=== PATIENT | male | born 2000 | race Caucasian/White ===

== ENCOUNTER 2019-09-11 20:01 | Emergency (ER) | payer MEDICAID, SELFPAY ==
[2019-09-11 20:12] VITALS: BP 141/85; PULSE 85; RESP 18; TEMP 36.8; O2SAT 100; BMI 27.1
--- NOTE | 2019-09-11 20:21 | XR_ITS ---
PROCEDURE: XR CHEST PORTABLE CLINICAL HISTORY: right low rib pain underneath ribs COMPARISON: CXR2 XR chest AP from 05/28/2018 XR CHEST 2V from 01/07/2019 CT ABDOMEN PELVIS W CON from 09/11/2019 FINDINGS: The cardiomediastinal silhouette and pulmonary vascularity are within normal limits. The lungs are clear without infiltrates, suspicious nodules, or pleural effusions. No acute bony abnormalities. IMPRESSION: No acute findings. Dictated by: Saleem Patiño MD 09/12/2019 05:30 Electronically signed by Saleem Patiño MD in [place] 09/12/2019 05:30
--- NOTE | 2019-09-11 20:23 | CT_ITS ---
PROCEDURE: CT ABDOMEN PELVIS W CON CLINICAL INDICATION: ruq abd pain Right upper quadrant pain, right lower quadrant pain COMPARISON: ABDPELW CT abdomen pelvis w con from 05/28/2018 TECHNIQUE: IV Contrast: 75ML OPTIRAY 350 Oral Contrast none Axial images obtained with sagittal and coronal reformats. All CT scans at the facility use one or more dose reduction, viz: automated exposure control, ma/kV adjustment per patient size (including targeted exams where dose is matched to indication, i.e. head), or iterative reconstruction technique. FINDINGS: LOWER THORAX: Increasing parenchymal opacity is present in the right middle lobe medially suggesting developing atelectasis or infiltrate versus scarring. ABDOMEN & PELVIS: The liver, spleen, adrenal glands, pancreas, and kidneys have an unremarkable appearance. There is a mild degree of motion artifact obscuring fine detail of the mid and upper abdomen especially of the intestines. No evidence of appendicitis, intestinal obstruction, free air, or diverticulitis. There is mild thickening of the urinary bladder.. No acute bony anomalies. Small lymph nodes are present in the inguinal regions. There postsurgical changes of the anterior abdominal wall on the left. There is a small umbilical hernia which contains fat IMPRESSION: 1. Thickening of the urinary bladder wall suggesting cystitis. The bladder is under distended which could contribute to this finding as well. 2. Increasing parenchymal opacification in the medial aspect of the right middle lobe which could be due to developing fibrosis versus atelectasis or infiltrate. Dictated by: Saleem Patiño MD 09/12/2019 06:11 Electronically signed by Saleem Patiño MD in [place] 09/12/2019 06:11
[2019-09-11 20:29] LABS: Basophils # 0.2 K/mm3 (0-0.2); Basophils % 2.2 % (0.1-2.0); Eosinophils # 0.4 K/mm3 (0.0-0.4); Hematocrit 50.4 % (42.0-52.0); Hemoglobin 16.8 g/dL (14.1-18.0); Lymphocytes # 3.3 K/mm3 (0.7-4.5); Lymphocytes % 33.2 % (10-50); Mean Corpuscular HGB Conc 33.4 g/dL (31.8-35.4); Mean Corpuscular Hemoglobin 29.4 pg (27.0-31.2); Mean Corpuscular Volume 87.9 fl (80-94); Monocytes # 0.6 K/mm3 (0.1-1.0); Monocytes % 6.2 % (1.7-9.3); Neutrophils # 5.4 K/mm3 (1.8-7.8); Neutrophils % 54.3 % (37.0-80.0); Platelet Count 313 K/mm3 (142-424); Red Blood Count 5.73 M/mm3 (4.60-6.20); Red Cell Distribution Width 13.1 % (11.5-17.5)
[2019-09-11 20:33] LABS: Chloride 101 mmol/L (98-107); Potassium 3.9 mmoL/L (3.5-5.1); Sodium 139 mmol/L (136-145)
[2019-09-11 20:35] LABS: Alanine Aminotransferase 46 U/L (12-78); Amylase 43 U/L (30-110); Aspartate Amino Transferase 34 U/L (17-59); Blood Urea Nitrogen 6 mg/dl (9-20); Creatinine Clearance Estimated 142 mL/min (50-200); Estimated Glomerular Filt Rate 94 ml/min (>60); GFR (African American) 114 ML/MIN (>60)
[2019-09-11 20:36] LABS: Albumin Level 4.9 g/dl (3.5-5.0); Albumin/Globulin Ratio 1.5 (1.1-1.8); Alkaline Phosphatase 64 U/L (38-126); Anion Gap 13.9 mEq/L (5-15); Bilirubin,Total 0.5 mg/dl (0.2-1.3); Calcium 9.9 mg/dl (8.4-10.2); Carbon Dioxide 28 mmol/L (22.0-30.0); Globulin 3.2 g/dL (1.3-3.2); Glucose 100 mg/dl (74-100); Lipase 42 U/L (23-300); Total Protein,Serum 8.1 g/dl (6.3-8.2)
[2019-09-11 20:49] LABS: Microscopic, Urine URINE MICROSCOPIC (MICROSCOPIC)
[2019-09-11 20:54] LABS: Appearance,Urine CLEAR (Clear); Bilirubin,Urine Negative (Negative); Blood, Urine Negative (Negative); Color,Urine YELLOW (Yellow); Glucose,Urine (UA) Negative (Negative); Ketones,Urine Negative (Negative); Leukocyte Esterase,Urine Negative (Negative); Nitrate,Urine Negative (Negative); Protein,Urine Negative (Negative); Urobilinogen,Urine 0.2 EU/dl (0.2)
--- NOTE | 2019-09-11 20:54 | PC.NURSE ---
back from rad
[2019-09-11 21:02] LABS: Bacteria,Urine Trace /lpf; WBC,Urine Occasional #/hpf (0-3)
--- NOTE | 2019-09-11 21:21 | HMH.EDNVD ---
ED Disposition Clinical Impression: Abdominal pain Qualifiers: Abdominal location: right upper quadrant Qualified Code(s): R10.11 - Right upper quadrant pain Disposition: Home, Self-Care Condition on Discharge: Good Instructions: DI for Acute Abdomen Additional Instructions: see pcp for follow up and more testing Referrals: Provider,Referral, [Primary Care Provider] - - Critical Care Critical Care Time: No Attestation: On 09/11/19, the high probability of a clinically significant, sudden or life threatening deterioration of the following system(s) required my full and direct attention, intervention and personal management. The time I documented below is in addition to time spent performing reported procedures but includes the following listed in this critical care notation. Medical Decision Making - Medical Records Medical records reviewed: Yes: I reviewed the patient's medical records. - Mehran Inquiry Pt receiving controlled substance: No Vital Signs: 09/11/19 20:12 Temperature 98.3 F Temperature Source Oral Pulse Rate [Right Brachial] 85 Respiratory Rate 18 Blood Pressure [Right Arm] 141/85 H Blood Pressure Mean [Right Arm] 103 Blood Pressure Source [Right Arm] Automatic Cuff Blood Pressure Position [Right Arm] Sitting 02 Sat by Pulse Oximetry 100 Oxygen Delivery Method Room Air - Lab Data Lab results reviewed: Yes: I reviewed the patient's lab results. Lab Results 09/11/19 20:20: WBC 10.0, RBC 5.73, Hgb 16.8, Hct 50.4, MCV 87.9, MCH 29.4, MCHC 33.4, RDW 13.1, Plt Count 313, MPV 8.0, Neut % (Auto) 54.3, Lymph % (Auto) 33.2, [place] % (Auto) 6.2, Eos % (Auto) 4.0, Baso % (Auto) 2.2 H, Neut # (Auto) 5.4, Lymph # (Auto) 3.3, [place] # (Auto) 0.6, Eos # (Auto) 0.4, Baso # (Auto) 0.2 09/11/19 20:20: Sodium 139, Potassium 3.9, Chloride 101, Carbon Dioxide 28, Anion Gap 13.9, BUN 6 L, Creatinine 1.00, Estimated Creat Clear 142, Estimated GFR 94, Est GFR ( Amer) 114, Glucose 100, Calcium 9.9, Total Bilirubin 0.5, AST 34, ALT 46, Alkaline Phosphatase 64, Total Protein 8.1, Albumin 4.9, Globulin 3.2, Albumin/Globulin Ratio 1.5, Amylase 43, Lipase 42 09/11/19 20:39: Urine Color Yellow, Urine Appearance Clear, Urine pH 6.0, Ur Specific [place] 1.010, Urine Protein Negative, Urine Glucose (UA) Negative, Urine Ketones Negative, Urine Blood Negative, Urine Nitrate Negative, Urine Bilirubin Negative, Urine Urobilinogen 0.2, Ur Leukocyte Esterase Negative, Urine WBC Occasional, Urine Bacteria Trace Result diagrams: 09/11/19 20:20 09/11/19 20:20 Orders (Tests/Meds): ED MEDICATIONS Generic Name Dose Route Start Last Admin Trade Name Freq PRN Reason Stop Dose Admin Sodium Chloride 1,000 mls @ 999 mls/hr 09/11/19 20:45 09/11/19 20:44 Sod Chlor 0.9% 1000ml Bag IV 09/11/19 21:45 999 mls/hr .Q1H1M MARKIE Administration Discontinued Medications Generic Name Dose Route Start Last Admin Trade Name Freq PRN Reason Stop Dose Admin Ioversol 75 ml 09/11/19 20:53 09/11/19 20:54 Rad-Optiray 350 100ml Vial IV 09/11/19 20:54 75 ml ONCE ONE Administration Protocol Sodium Chloride 10 ml 09/11/19 20:53 09/11/19 20:54 Rad-Saline Flush 10ml Syringe IV 09/11/19 20:54 10 ml ONCE ONE Administration ORDERS Category Date Time Status CT abdomen pelvis w con Stat Cat Scan 09/11/19 20:23 Taken Chest XR -- portable [XR chest portable] Stat Exams 09/11/19 20:21 Taken - Radiology Data #1 Image(s): Chest Image Reviewed: Yes I reviewed the patient's radiology image Preliminary Findings: Normal/NAD - CT Data CT Scan: Abdomen, Pelvis Time Received: 21:[address] Reviewed: Yes: I have viewed the radiologist's interpretation Preliminary Findings: Normal/NAD Medical Decision Narrative: will eval for liver dis and possible shingles Nausea/Vomiting/Diarrhea HPI - General Chief complaint: Abdominal Pain Stated complaint: R side pain Time Seen by Provider: 09/11/19 2
[2019-09-11 22:04] VITALS: BP 129/65; PULSE 81; RESP 19; TEMP 36.7; O2SAT 98
== END 2019-09-11 22:05 | disposition home or self-care (01) ==
PROVIDERS: Emergency Medicine; Emergency Provider Family Medicine
DX: R10.11 Right upper quadrant pain (principal); R07.89 Other chest pain; F17.210 Nicotine dependence, cigarettes, uncomplicated
CPT/HCPCS: 71045; 74177; 80053; 81001; 82150; 83690; 85025; 96365; 96375; 99283; Q9967

== ENCOUNTER 2019-09-22 21:02 | Emergency (ER) | payer MEDICAID, SELFPAY ==
--- NOTE | 2019-09-22 21:05 | PC.NURSE ---
rad aware of xrays ordered
[2019-09-22 21:06] VITALS: BMI 27.3
--- NOTE | 2019-09-22 21:07 | XR_ITS ---
PROCEDURE: XR FOREARM RT 2V CLINICAL INDICATION: concrete wall Posttraumatic pain COMPARISON: XR HAND RT MIN 3V from 09/22/2019 FINDINGS: No fracture or dislocation. No lytic or blastic change. There is normal mineralization. The joint spaces are well-preserved. No significant degenerative/arthritic changes. No erosive changes evident. Other findings:None. IMPRESSION: No acute findings. Dictated by: Saleem Patiño MD 09/23/2019 07:41 Electronically signed by Saleem Patiño MD in [place] 09/23/2019 07:41
--- NOTE | 2019-09-22 21:07 | XR_ITS ---
PROCEDURE: XR HAND RT MIN 3V CLINICAL INDICATION: hand vs concrete wall Injury with pain COMPARISON: [id number] XR hand RT min 3V from 01/02/2018 [id number] XR hand RT min 3V from 01/06/2018 FINDINGS: No fracture or dislocation. No lytic or blastic change. There is normal mineralization. The joint spaces are well-preserved. No significant degenerative/arthritic changes. No erosive changes evident. Other findings:There is a well-circumscribed calcification along the proximal and lateral aspect of the proximal phalanx of the thumb and may be due to an old avulsion fracture not significantly changed. IMPRESSION: No acute findings. Dictated by: Saleem Patiño MD 09/23/2019 07:43 Electronically signed by Saleem Patiño MD in [place] 09/23/2019 07:43
[2019-09-22 21:11] VITALS: BP 143/92; PULSE 111; RESP 16; TEMP 37; O2SAT 97; BMI 26.3
--- NOTE | 2019-09-22 21:30 | HMH.EDUPEXT ---
ED Disposition Clinical Impression: Hand contusion Qualifiers: Encounter type: initial encounter Laterality: right Qualified Code(s): S60.221A - Contusion of right hand, initial encounter Disposition: Home, Self-Care Condition on Discharge: Good Instructions: DI for Hand Injury Additional Instructions: advil/tyenol and see pcp for follow up Referrals: Provider,Referral, [Primary Care Provider] - - Critical Care Critical Care Time: No Attestation: On 09/22/19, the high probability of a clinically significant, sudden or life threatening deterioration of the following system(s) required my full and direct attention, intervention and personal management. The time I documented below is in addition to time spent performing reported procedures but includes the following listed in this critical care notation. Medical Decision Making - Medical Records Medical records reviewed: Yes: I reviewed the patient's medical records. - Mehran Inquiry Pt receiving controlled substance: No Vital Signs: 09/22/19 21:11 Temperature 98.6 F Temperature Source Oral Pulse Rate [Right Brachial] 111 H Respiratory Rate 16 Blood Pressure [Right Arm] 143/92 H Blood Pressure Mean [Right Arm] 109 Blood Pressure Source [Right Arm] Automatic Cuff Blood Pressure Position [Right Arm] Sitting 02 Sat by Pulse Oximetry 97 Oxygen Delivery Method Room Air Orders (Tests/Meds): ORDERS Category Date Time Status XR forearm RT 2V Stat Exams 09/22/19 21:07 Taken XR hand RT min 3V Stat Exams 09/22/19 21:07 Taken - Radiology Data #1 Image(s): Forearm, Hand Image Reviewed: Yes I reviewed the patient's radiology image Preliminary Findings: No Fracture Seen Upper Extremity HPI - General Chief Complaint: Extremity Injury, Upper Stated Complaint: AO [id number] hit R Hand Time Seen by Provider: 09/22/19 21:25 Mode of Arrival: Ambulatory Source of Information: Patient, Medical Record Limitations: No Limitations Description of Symptoms (Recalled from ER Triage Doc. by RN): Patient reports he got upset and punched a concrete wall with his right hand. - History of Present Illness HPI narrative: acute rt hand injury - he punched cement complaint: injury to: right, hand Onset (ago): hour(s) Other Extremity Injury: Right: hand Other injuries: none Handedness: right Place: home Severity: moderate Context: direct blow Associated symptoms: denies other symptoms - Related Data Home Medications Medication Instructions Recorded Confirmed Aspirin [Aspir 81] 81 mg PO DAILY 01/06/18 01/07/19 Meloxicam 7.5 mg PO BID 01/06/18 01/07/19 Memantine HCl [Memantine 10mg 10 mg PO BID 01/06/18 01/07/19 Tablet] Miscellaneous [Unknown Home 0 each NOTAPPLIC CONSULT PHARMACY 01/06/18 01/07/19 Medication] Previous Rx's Medication Instructions Recorded Ibuprofen [Motrin 800mg Tab 800 mg PO Q6HP PRN #30 tab 09/23/18 (generic)] Ibuprofen [Motrin 600mg 600 mg PO Q6HP PRN #20 tab 11/25/18 Tablet] Azithromycin [Zithromax 250mg 250 mg PO DIRECTED #6 tab 01/07/19 tab] Allergies Allergy/AdvReac Type Severity Reaction Status Date / Time No Known Allergies Allergy Verified 09/22/19 21:27 [facility] History - Hepatitis A Screen Drug use history?: No High risk sexual behaviors?: No History of sexually transmitted infection?: No Currently employed?: No Childcare worker?: No Do you have indoor plumbing?: Yes Do you have electricity?: Yes Attestation statement:: This patient has been screened for Hepatitis A risk factors. I have reviewed the patient's past medical history: Yes Medical History: Denies:: Cancer, Diabetes Mellitus Type 1, Diabetes Mellitus Type 2, MRSA Amputation: No Fractures: No - Social History Smoking Status: Current every day smoker Tobacco Type: cigarettes # Packs/Day (cigarettes): 1 Alcohol Intake: never Occupational Status: disabled Household Members: family ROS Ob
[2019-09-22 21:35] VITALS: BP 140/88; PULSE 98; RESP 16; TEMP 37; O2SAT 97
== END 2019-09-22 21:43 | disposition home or self-care (01) ==
PROVIDERS: Emergency Provider Emergency Medicine
DX: S61.411A Laceration without foreign body of right hand, initial encounter (principal); W22.01XA Walked into wall, initial encounter; F17.210 Nicotine dependence, cigarettes, uncomplicated
CPT/HCPCS: 73090; 73130; 99282

== ENCOUNTER 2019-09-26 22:52 | Emergency (ER) | payer MEDICAID, SELFPAY ==
[2019-09-26 23:07] VITALS: BP 131/97; PULSE 117; RESP 20; TEMP 39.6; O2SAT 99; BMI 27.1
--- NOTE | 2019-09-26 23:18 | XR_ITS ---
PROCEDURE: XR CHEST 2V Patient Age:19Y CLINICAL HISTORY: fever w/ cough smoker COMPARISON: No exams were available for comparison FINDINGS: Of the lungs are well expanded and fairly clear with only minor linear atelectasis or scarring towards the left CP angle. Question some very subtle blunting of left CP angle on AP view, but no convincing pleural effusion. The mid and upper lung field clear on left. The right lung is clear and unremarkable.. Heart and mediastinal structures satisfactory. Chest wall in T-spine unremarkable. Relative narrow AP dimension chest. IMPRESSION: No the consolidation or discrete pneumonia. Minimal linear scarring or atelectasis towards left CP angle. Otherwise would only question very subtle scant blunting towards left CP angle on AP view-equivocal observation Dictated by: Eddy Bess MD 09/27/2019 14:49 Electronically signed by Eddy Bess MD in [place] 09/27/2019 14:49
[2019-09-26 23:32] LABS: Basophils # 0.1 K/mm3 (0-0.2); Basophils % 0.7 % (0.1-2.0); Eosinophils # 0.1 K/mm3 (0.0-0.4); Eosinophils % 1.1 % (0.1-12.0); Hematocrit 43.8 % (42.0-52.0); Hemoglobin 15.1 g/dL (14.1-18.0); Lymphocytes # 1.5 K/mm3 (0.7-4.5); Mean Corpuscular HGB Conc 34.4 g/dL (31.8-35.4); Mean Corpuscular Hemoglobin 29.7 pg (27.0-31.2); Mean Corpuscular Volume 86.3 fl (80-94); Mean Platelet Volume 8.4 fl (7.4-10.4); Monocytes # 0.9 K/mm3 (0.1-1.0); Monocytes % 6.8 % (1.7-9.3); Neutrophils # 10.9 K/mm3 (1.8-7.8); Neutrophils % 80.5 % (37.0-80.0); Platelet Count 230 K/mm3 (142-424); Red Blood Count 5.08 M/mm3 (4.60-6.20); Red Cell Distribution Width 13.6 % (11.5-17.5); White Blood Count 13.5 K/mm3 (4.8-10.8)
[2019-09-26 23:36] LABS: Alanine Aminotransferase 34 U/L (12-78); Albumin Level 4.9 g/dl (3.5-5.0); Albumin/Globulin Ratio 1.6 (1.1-1.8); Alkaline Phosphatase 62 U/L (38-126); Anion Gap 10.4 mEq/L (5-15); Aspartate Amino Transferase 23 U/L (17-59); Bilirubin,Total 0.5 mg/dl (0.2-1.3); Blood Urea Nitrogen 14 mg/dl (9-20); Calcium 9.5 mg/dl (8.4-10.2); Carbon Dioxide 28 mmol/L (22.0-30.0); Chloride 102 mmol/L (98-107); Creatinine Clearance Estimated 129 mL/min (50-200); Estimated Glomerular Filt Rate 85 ml/min (>60); GFR (African American) 102 ML/MIN (>60); Globulin 3.1 g/dL (1.3-3.2); Glucose 100 mg/dl (74-100); Potassium 3.4 mmoL/L (3.5-5.1); Sodium 137 mmol/L (136-145)
[2019-09-26 23:37] LABS: Lactic Acid 0.8 mmol/L (0.7-2.1)
[2019-09-26 23:38] LABS: Strep Scrn Group A (Rapid) Negative (Negative)
[2019-09-26 23:41] LABS: C-Reactive Protein 67.4 mg/L (0-4)
[2019-09-27 00:33] VITALS: BP 104/67; PULSE 107; RESP 18; TEMP 39.1; O2SAT 100
[2019-09-27 00:40] LABS: Erythrocyte Sedimentation Rate 17 mm/hr (0-15)
[2019-09-27 00:45] LABS: Microscopic, Urine URINE MICROSCOPIC (MICROSCOPIC)
[2019-09-27 00:53] LABS: Appearance,Urine CLEAR (Clear); Bilirubin,Urine Negative (Negative); Blood, Urine Negative (Negative); Color,Urine DK YELLOW (Yellow); Glucose,Urine (UA) Negative (Negative); Ketones,Urine Negative (Negative); Leukocyte Esterase,Urine Negative (Negative); Nitrate,Urine Negative (Negative); Protein,Urine Negative (Negative)
--- NOTE | 2019-09-27 01:31 | HMH.EDFEV ---
ED Disposition Clinical Impression: Febrile illness, acute, SIRS (systemic inflammatory response syndrome) Disposition: Home, Self-Care Condition on Discharge: Good Instructions: DI for Fever (Symptom) -- Adult Additional Instructions: fluids and see pcp sunday and use meds as directed Prescriptions: Azithromycin [Zithromax 250mg tab] 250 mg PO DIRECTED #6 tab Transmission Status: Pending to [facility] Referrals: Provider,Referral, [Primary Care Provider] - - Critical Care Critical Care Time: No Attestation: On 09/26/19, the high probability of a clinically significant, sudden or life threatening deterioration of the following system(s) required my full and direct attention, intervention and personal management. The time I documented below is in addition to time spent performing reported procedures but includes the following listed in this critical care notation. Medical Decision Making - Medical Records Medical records reviewed: Yes: I reviewed the patient's medical records. - Mehran Inquiry Pt receiving controlled substance: No Vital Signs: 09/26/19 23:07 09/27/19 00:33 Temperature 103.2 F H 102.3 F H Temperature Source Oral Oral Pulse Rate [Left] 117 H 107 H Respiratory Rate 20 18 Blood Pressure [Right Arm] 131/97 H 104/67 L Blood Pressure Mean [Right Arm] 108 79 02 Sat by Pulse Oximetry 99 100 Oxygen Delivery Method Room Air Room Air - Lab Data Lab results reviewed: Yes: I reviewed the patient's lab results. Lab Results 09/26/19 23:10: WBC 13.5 H, RBC 5.08, Hgb 15.1, Hct 43.8, MCV 86.3, MCH 29.7, MCHC 34.4, RDW 13.6, Plt Count 230, MPV 8.4, Neut % (Auto) 80.5 H, Lymph % (Auto) 11.0, [place] % (Auto) 6.8, Eos % (Auto) 1.1, Baso % (Auto) 0.7, Neut # (Auto) 10.9 H, Lymph # (Auto) 1.5, [place] # (Auto) 0.9, Eos # (Auto) 0.1, Baso # (Auto) 0.1, ESR 17 H 09/26/19 23:10: Sodium 137, Potassium 3.4 L, Chloride 102, Carbon Dioxide 28, Anion Gap 10.4, BUN 14, Creatinine 1.10, Estimated Creat Clear 129, Estimated GFR 85, Est GFR ( Amer) 102, Glucose 100, Calcium 9.5, Total Bilirubin 0.5, AST 23, ALT 34, Alkaline Phosphatase 62, C-Reactive Protein 67.4 H, Total Protein 8.0, Albumin 4.9, Globulin 3.1, Albumin/Globulin Ratio 1.6 09/26/19 23:10: Lactate 0.8 09/26/19 23:10: Influenza Type A Ag Negative, Influenza Type B Ag Negative 09/26/19 23:10: Group A Strep Rapid Negative 09/27/19 00:35: Urine Color Dk yellow, Urine Appearance Clear, Urine pH 7.0, Ur Specific [place] 1.020, Urine Protein Negative, Urine Glucose (UA) Negative, Urine Ketones Negative, Urine Blood Negative, Urine Nitrate Negative, Urine Bilirubin Negative, Urine Urobilinogen 2.0, Ur Leukocyte Esterase Negative, Urine WBC 3-5 Result diagrams: 09/26/19 23:10 09/26/19 23:10 Orders (Tests/Meds): ED MEDICATIONS Generic Name Dose Route Start Last Admin Trade Name Freq PRN Reason Stop Dose Admin Sodium Chloride 1,000 mls @ 999 mls/hr 09/26/19 23:30 09/26/19 23:52 Sod Chlor 0.9% 1000ml Bag IV 09/27/19 00:30 999 mls/hr .Q1H1M MARKIE Administration Ceftriaxone Sodium 1 gm/ 50 mls @ 100 mls/hr 09/27/19 00:30 09/27/19 00:36 Sodium Chloride IV 10/11/19 00:29 100 mls/hr Q24H MARKIE Administration Protocol Discontinued Medications Generic Name Dose Route Start Last Admin Trade Name Freq PRN Reason Stop Dose Admin Acetaminophen 1,000 mg 09/26/19 23:18 09/26/19 23:52 Tylenol 500mg Tablet PO 09/26/19 23:19 1,000 mg ONCE ONE Administration Azithromycin 500 mg 09/27/19 00:19 09/27/19 00:36 Zithromax 250mg Tablet PO 09/27/19 00:20 500 mg ONCE ONE Administration Protocol Ibuprofen 800 mg 09/26/19 23:18 09/26/19 23:52 Motrin 400mg Tablet PO 09/26/19 23:19 800 mg ONCE ONE Administration Methylprednisolone Sodium Succinate 125 mg 09/27/19 00:19 09/27/19 00:36 Solu-Medrol 125mg/2ml Vial IV 09/27/19 00:20 125 mg ONCE ONE Administration ORDERS Categ
[2019-09-27 01:45] VITALS: BP 116/64; PULSE 94; RESP 16; TEMP 37.7; O2SAT 98
[2019-09-28 08:31] LABS: Covid-19 Nasal PCR Sendout UK NOT DETECTED
--- NOTE | 2019-09-28 20:00 | PC.NURSE ---
Covid -19 results negative. Attempted to call patient number on face sheet was for jay Meyer. no message left at this time.
--- NOTE | 2019-09-29 11:53 | PC.NURSE ---
pt notified of negative COVID 19 results.
== END 2019-09-27 01:48 | disposition home or self-care (01) ==
PROVIDERS: Emergency Provider Emergency Medicine
DX: R50.9 Fever, unspecified (principal); R65.10 Systemic inflammatory response syndrome (SIRS) of non-infectious origin without acute organ dysfunction; F17.210 Nicotine dependence, cigarettes, uncomplicated
CPT/HCPCS: 71046; 80053; 81001; 83605; 85025; 85651; 86140; 87040; 87275; 87276; 87430; 96365; 96367; 96375; 99284; U0003

== ENCOUNTER 2020-08-19 23:01 | Emergency (ER) | payer MEDICAID, SELFPAY ==
[2020-08-19 23:06] VITALS: BP 157/82; PULSE 94; RESP 19; TEMP 36.7; O2SAT 98; BMI 26.3
--- NOTE | 2020-08-19 23:23 | XR_ITS ---
PROCEDURE: XR CHEST 2V CLINICAL HISTORY: productive cough COMPARISON: CR CXR2 XR chest AP from 05/28/2018 CR XR CHEST 2V from 01/07/2019 CR XR CHEST PORTABLE from 09/11/2019 FINDINGS: The cardiomediastinal silhouette and pulmonary vascularity are within normal limits. The lungs are clear without infiltrates, suspicious nodules, or pleural effusions. No acute bony abnormalities. IMPRESSION: No acute findings. Dictated by: Saleem Patiño MD 08/20/2020 05:30 Saleem Patiño MD in [place] 08/20/2020 05:30
--- NOTE | 2020-08-19 23:39 | HMH.EDURI ---
ED Disposition Clinical Impression: Bronchitis Disposition: Home, Self-Care Condition on Discharge: Good Instructions: DI for Acute Bronchitis Additional Instructions: fluids and use meds and call pcp for follow up and results Prescriptions: predniSONE [Prednisone 20mg Tab] 20 mg PO BID #10 tab Transmission Status: Pending to [facility] Benzonatate [Tessalon Perle 100mg Cap] 100 mg PO TID #30 cap Transmission Status: Pending to [facility] Azithromycin [Zithromax 250mg tab] 250 mg PO DIRECTED #6 tab Transmission Status: Pending to [facility] Referrals: PCP,No [Primary Care Provider] - - Critical Care Critical Care Time: No Attestation: On 08/19/20, the high probability of a clinically significant, sudden or life threatening deterioration of the following system(s) required my full and direct attention, intervention and personal management. The time I documented below is in addition to time spent performing reported procedures but includes the following listed in this critical care notation. Medical Decision Making - Medical Records Medical records reviewed: Yes: I reviewed the patient's medical records. - Mehran Inquiry Pt receiving controlled substance: No Vital Signs: 08/19/20 23:06 Temperature 98.0 F Temperature Source Oral Pulse Rate [Right Brachial] 94 H Respiratory Rate 19 Blood Pressure [Right Arm] 157/82 H Blood Pressure Mean [Right Arm] 107 Blood Pressure Source [Right Arm] Automatic Cuff Blood Pressure Position [Right Arm] Supine 02 Sat by Pulse Oximetry 98 Oxygen Delivery Method Room Air - Lab Data Lab results reviewed: Yes: I reviewed the patient's lab results. Orders (Tests/Meds): ORDERS Category Date Time Status CXR 2 view (NOT portable) [XR chest 2V] Stat Exams 08/19/20 23:23 Taken Full Resp Panel w/COVID ([facility]) Routine Lab 08/19/20 23:24 Received Strep Scrn Group A (Rapid) Stat Lab 08/19/20 23:24 Received - Radiology Data #1 Image(s): Chest Image Reviewed: Yes I reviewed the patient's radiology image Preliminary Findings: Abnormal (nonspecific) Medical Decision Narrative: will cover with abx at this time URI/Sore Throat HPI - General Chief Complaint: Upper Respiratory Infection Stated Complaint: sore throat Time Seen by Provider: 08/19/20 23:15 Mode of Arrival: Ambulatory Source of Information: Patient, Parent(s), Medical Record Limitations: No Limitations Description of Symptoms (Recalled from ER Triage Doc. by RN): Pt c/o sore throat and productive cough since yesterday. He denies any fever, sinus pain or sinus congestion, dizziness, or chest congestion. He also denies any N/V/D. He has not taken any meds OTC for relief of symptoms. - History of Present Illness HPI Narrative: productive cough and sore throat since yesterday - does use tob and has no exposure to covid-19 and had vaccine MD Complaint: cough, sore throat Onset (ago): day(s) Severity: moderate Description of mucous: yellow Able to tolerate fluids by mouth: Yes Associated symptoms: denies other symptoms Treatments prior to arrival: none - Related Data Home Medications Medication Instructions Recorded Confirmed Aspirin [Aspir 81] 81 mg PO DAILY 01/06/18 08/19/20 risperiDONE [Risperidone] 1 mg PO BID 08/19/20 08/19/20 Previous Rx's Medication Instructions Recorded Azithromycin [Zithromax 250mg 250 mg PO DIRECTED #6 tab 08/20/20 tab] Benzonatate [Tessalon Perle 100mg 100 mg PO TID #30 cap 08/20/20 Cap] predniSONE [Prednisone 20mg 20 mg PO BID #10 tab 08/20/20 Tab] Allergies Allergy/AdvReac Type Severity Reaction Status Date / Time No Known Allergies Allergy Verified 09/22/19 21:27 [facility] History - Hepatitis A Screen Drug use history?: No High risk sexual behaviors?: No History of sexually transmitted infection?: No Currently employed?: No Childcare worker?: No Do you have indoor john
[2020-08-19 23:48] LABS: Adenovirus,PCR Not Detected (NotDetected); Bordetella Pertussis Not Detected (NotDetected); Chlamydophila Pneumoniae, PCR Not Detected (NotDetected); Coronavirus 19, PCR Not Detected (NotDetected); Coronavirus 229E Not Detected (NotDetected); Coronavirus NL63 Not Detected (NotDetected); Coronavirus OC43 Not Detected (NotDetected); Coronovirus HKU1,PCR Not Detected (NotDetected); Human Metapneumovirus Not Detected (NotDetected); Influenza A, PCR Not Detected (NotDetected); Influenza AH1, 2009 Not Detected (NotDetected); Influenza AH1, PCR Not Detected (NotDetected); Influenza AH3,PCR Not Detected (NotDetected); Influenza B, PCR Not Detected (NotDetected); Mycoplasma Pneumoniae, PCR Not Detected (NotDetected); Parainfluenza 1, PCR Not Detected (NotDetected); Parainfluenza 2, PCR Not Detected (NotDetected); Parainfluenza 3, PCR Not Detected (NotDetected); Parainfluenza 4, PCR Not Detected (NotDetected); Respiratory Syncytial Virus Not Detected (NotDetected)
[2020-08-20 00:05] LABS: Strep Scrn Group A (Rapid) Negative (Negative)
--- NOTE | 2020-08-20 00:05 | PC.NURSE ---
called lab to ask how much longer on strep, told it should be resulting in a few min
[2020-08-20 00:15] VITALS: BP 144/85; PULSE 84; RESP 16; TEMP 36.6; O2SAT 97
[2020-08-20 01:08] LABS: Rhinovirus/Enterovirus Detected (NotDetected)
== END 2020-08-20 00:20 | disposition home or self-care (01) ==
PROVIDERS: Emergency Provider Emergency Medicine
DX: J20.6 Acute bronchitis due to rhinovirus (principal); F17.210 Nicotine dependence, cigarettes, uncomplicated
CPT/HCPCS: 71046; 87430; 87581; 87633; 87798; 99283

== ENCOUNTER 2020-10-09 18:13 | Emergency (ER) | payer MEDICAID, SELFPAY ==
[2020-10-09 18:24] VITALS: BP 125/76; PULSE 110; RESP 18; O2SAT 98; BMI 27.1
[2020-10-09 18:25] VITALS: BP 125/76; PULSE 110; RESP 18; TEMP 36.8; O2SAT 98; BMI 27.0
--- NOTE | 2020-10-09 19:09 | HMH.EDUTC ---
[facility] Disposition Clinical Impression: Encounter for drug screening Disposition: Home, Self-Care Condition on Discharge: Good Instructions: Toxicology Screen, DI for Substance Use Disorder Additional Instructions: monitor pt follow up with pcp monitor pt around friends return if any issues Referrals: Provider,Referral, [Primary Care Provider] - Time of Disposition: 19:48 Medical Decision Making - Mehran Inquiry Pt receiving controlled substance: No Vital Signs: 10/09/20 18:24 10/09/20 18:25 Temperature 98.2 F Temperature Source Temporal Artery Scan Pulse Rate [Left Radial] 110 H 110 H Respiratory Rate 18 18 Blood Pressure [Right Arm] 125/76 125/76 Blood Pressure Mean [Right Arm] 92 92 Blood Pressure Source [Right Arm] Automatic Cuff Automatic Cuff Blood Pressure Position [Right Arm] Sitting Sitting 02 Sat by Pulse Oximetry 98 98 Oxygen Delivery Method Room Air Room Air - Lab Data Lab Results 10/09/20 18:50: Urine Opiates Screen Negative, Urine Methadone Screen Negative, Ur Barbituates Screen Negative, Ur Phencyclidine Scrn Negative, Ur Amphetamines Screen Negative, U Benzodiazepines Scrn Negative, Urine Cocaine Screen Negative, U Marijuana (THC) Screen Positive H Medical Decision Narrative: while in [facility] pt asked for something to eat- was given a cookie and sprite and pt tolerated it well. [facility] HPI - General Chief complaint: Urgent [facility] Stated complaint: nausea,vomit Time Seen by Provider: 10/09/20 19:09 Mode of Arrival: Ambulatory Source of Information: Parent(s) Limitations: No Limitations Description of Symptoms (Recalled from Triage Doc. by RN): Father states he was out with friends and was aware that pt was doing some weed but he is afraid that the weed had something else in due to pt vomiting. Pt is A&O x4 and states that he feels hungry right now. Denies any other issues at this time. Pt is special needs so the father wants him drug tested just to make sure he doesnt anything more than just weed. HEENT Symptoms (Recalled from RN notes): No Resp Symptoms (Recalled from RN notes): No Skin Symptoms (Recalled from RN notes): No MS Symptoms (Recalled from RN notes): No Functional Status (Recalled from RN notes): WNL - History of Present Illness Provider Complaint: 20 yr old male presents for drug test.Father states he was out with friends and was aware that pt was doing some weed but he is afraid that the weed had something else in due to pt vomiting. Pt is A&O x4 and states that he feels hungry right now. Denies any other issues at this time. Pt is special needs so the father wants him drug tested just to make sure he doesnt anything more than just weed. - Related Data Home Medications Medication Instructions Recorded Confirmed risperiDONE [Risperidone] 1 mg PO BID 08/19/20 10/09/20 Allergies Allergy/AdvReac Type Severity Reaction Status Date / Time No Known Allergies Allergy Verified 09/22/19 21:27 - Worker's Comp Is this a Worker's Comp case?: No [facility] History - Hepatitis A Screen Drug use history?: No High risk sexual behaviors?: No History of sexually transmitted infection?: No Currently employed?: No Childcare worker?: No Do you have indoor plumbing?: Yes Do you have electricity?: Yes Attestation statement:: This patient has been screened for Hepatitis A risk factors. I have reviewed the patient's past medical history: Yes Medical History: Denies:: Cancer, Diabetes Mellitus Type 1, Diabetes Mellitus Type 2, MRSA Amputation: No Fractures: No - Social History Smoking Status: Current every day smoker Tobacco Type: cigarettes # Packs/Day (cigarettes): 1 Alcohol Intake: never Alcohol Intake Frequency:: other Occupational Status: other Household Members: family ROS Obtained: Yes Systems reviewed as appropriate & no additional complaints - Constitutional Constitutional: Reports system reviewed and no additional complaints, except as do
[2020-10-09 19:10] LABS: Amphetamine/Metha Screen,Urine Negative ng/ml (<1000); Benzodiazepines Screen,Urine Negative ng/ml (<200)
[2020-10-09 19:11] LABS: Barbiturates Screen,Urine Negative ng/ml (<200)
[2020-10-09 19:12] LABS: Cannabinoid Screen,Urine Positive ng/ml (<50); Cocaine Screen,Urine Negative ng/ml (<300)
[2020-10-09 19:13] LABS: Methadone Screen,Urine Negative ng/ml (<300)
[2020-10-09 19:14] LABS: Opiate Screen,Urine Negative ng/ml (<300); Phencyclidine Screen,Urine Negative ng/ml (<25)
[2020-10-09 19:46] VITALS: BP 125/76; PULSE 110; RESP 18; TEMP 36.8; O2SAT 98
== END 2020-10-09 19:50 | disposition home or self-care (01) ==
PROVIDERS: Emergency Provider Nurse Practitioner Family
DX: Z02.83 Encounter for blood-alcohol and blood-drug test (principal); R11.2 Nausea with vomiting, unspecified; F12.10 Cannabis abuse, uncomplicated; F17.210 Nicotine dependence, cigarettes, uncomplicated
CPT/HCPCS: 80305; 99202; G0463

== ENCOUNTER 2020-12-29 14:41 | Emergency (ER) | payer MEDICAID, SELFPAY ==
[2020-12-29 14:32] VITALS: BP 120/83; PULSE 96; RESP 16; TEMP 36.7; O2SAT 96; BMI 26.3
--- NOTE | 2020-12-29 14:39 | XR_ITS ---
PROCEDURE: XR HAND LT MIN 3V CLINICAL INDICATION: punched a dresser Pain COMPARISON: No exams were available for comparison FINDINGS: No fracture or dislocation. No lytic or blastic change. There is normal mineralization. The joint spaces are well-preserved. No significant degenerative/arthritic changes. No erosive changes evident. Other findings:None. IMPRESSION: No acute findings. Dictated by: Saleem Patiño MD 12/29/2020 15:26 Saleem Patiño MD in [place] 12/29/2020 15:26
--- NOTE | 2020-12-29 15:13 | HMH.EDEXTP ---
ED Disposition Clinical Impression: Hand sprain Disposition: Home, Self-Care Condition on Discharge: Good Instructions: Sprain Additional Instructions: Follow-up with your primary care physician within the next week should you have persistent pain and obtain a repeat x-ray otherwise keep ice on the area of swelling and take ibuprofen as needed return for any concerns in the next few days Referrals: Provider,Referral, [Primary Care Provider] - - Critical Care Critical Care Time: No Attestation: On 12/29/20, the high probability of a clinically significant, sudden or life threatening deterioration of the following system(s) required my full and direct attention, intervention and personal management. The time I documented below is in addition to time spent performing reported procedures but includes the following listed in this critical care notation. Medical Decision Making - Medical Records Medical records reviewed: Yes: I reviewed the patient's medical records. - Mehran Inquiry Pt receiving controlled substance: No Vital Signs: 12/29/20 14:32 Temperature 98.1 F Temperature Source Oral Pulse Rate [Right Radial] 96 H Respiratory Rate 16 Blood Pressure [Right Arm] 120/83 Blood Pressure Mean [Right Arm] 95 Blood Pressure Source [Right Arm] Automatic Cuff Blood Pressure Position [Right Arm] Sitting 02 Sat by Pulse Oximetry 96 Oxygen Delivery Method Room Air Medical Decision Narrative: 20-year-old male presents with left hand injury. He is in no acute distress nontoxic-appearing otherwise stable with no other traumatic injury identified. No wrist tenderness on exam and otherwise neurovascularly intact X-ray does not show acute fracture. Plan to recommend symptomatic treatment and discharge home with return precautions and follow-up recommendations to follow-up for repeat x-ray in 1 week should he have persistent symptoms Extremity Problem HPI - General Chief complaint: Extremity Injury, Upper Stated complaint: Lt hand injury Time Seen by Provider: 12/29/20 14:45 Mode of Arrival: EMS Limitations: No Limitations Description of Symptoms (Recalled from ER Triage Doc. by RN): Pt c/o lt hand pain around the knuckle of his ring finger after punching a dresser out of anger - History of Present Illness HPI Narrative: 20-year-old male presents with left hand injury. He punched a dresser because he was angry about something. He has right-handed. No other injuries. No bleeding from wound. Pain is constant dull nonradiating. MD Complaint: extremity pain Onset (ago): hour(s) (1) Consistency: constant Location: left Quality: dull - Related Data Home Medications Medication Instructions Recorded Confirmed Melatonin 10 mg PO HS 01/04/19 01/04/19 risperiDONE [Risperidone] 0.5 mg PO BID 01/04/19 01/04/19 Previous Rx's Medication Instructions Recorded Meloxicam [Mobic 15 mg tab] 15 mg PO DAILY #7 tab 01/04/19 Azithromycin [Zithromax 250mg 250 mg PO DIRECTED #6 tab 09/27/19 tab] Allergies Allergy/AdvReac Type Severity Reaction Status Date / Time No Known Allergies Allergy Verified 01/04/19 22:41 [facility] History - Hepatitis A Screen Drug use history?: No High risk sexual behaviors?: No History of sexually transmitted infection?: No Currently employed?: No Childcare worker?: No Do you have indoor plumbing?: Yes Do you have electricity?: Yes Attestation statement:: This patient has been screened for Hepatitis A risk factors. Medical History: Denies:: Diabetes Mellitus Type 1, Diabetes Mellitus Type 2 Laterality Cases: Left: Arthroscopy Knee - Social History Smoking Status: Current every day smoker Tobacco Type: cigarettes # Packs/Day (cigarettes): 1 Alcohol Intake: never Substance Use Type: marijuana Occupational Status: other ROS Obtained: Yes All systems reviewed & no additional complaints - Constitutional Constitutional: Denies chills - Eyes Eyes: Wesly
[2020-12-29 15:20] VITALS: BP 119/74; PULSE 79; RESP 16; TEMP 36.7; O2SAT 98
== END 2020-12-29 15:48 | disposition home or self-care (01) ==
PROVIDERS: Emergency Provider Emergency Medicine
DX: S63.92XA Sprain of unspecified part of left wrist and hand, initial encounter (principal); W22.01XA Walked into wall, initial encounter; Y92.89 Other specified places as the place of occurrence of the external cause
CPT/HCPCS: 73130; 99282

== ENCOUNTER 2021-02-24 13:00 | Emergency (ER) | payer MEDICAID, SELFPAY ==
[2021-02-24 13:00] VITALS: BP 127/93; PULSE 76; RESP 16; TEMP 37; O2SAT 96; BMI 27.9
--- NOTE | 2021-02-24 13:01 | XR_ITS ---
PROCEDURE: XR SHOULDER LT MIN 2V CLINICAL INDICATION: pain COMPARISON: No exams were available for comparison FINDINGS: No fracture or dislocation. No lytic or blastic change. There is normal mineralization. The joint spaces are well-preserved. No significant degenerative/arthritic changes. No erosive changes evident. Other findings:None. IMPRESSION: No acute findings. Dictated by: Saleem Patiño MD 02/24/2021 14:31 Saleem Patiño MD in [place] 02/24/2021 14:31
--- NOTE | 2021-02-24 13:02 | XR_ITS ---
PROCEDURE: XR HUMERUS LT CLINICAL INDICATION: pain COMPARISON: No exams were available for comparison FINDINGS: No fracture or dislocation. No lytic or blastic change. There is normal mineralization. The joint spaces are well-preserved. No significant degenerative/arthritic changes. No erosive changes evident. Other findings:None. IMPRESSION: No acute findings. Dictated by: Saleem Patiño MD 02/24/2021 14:16 Saleem Patiño MD in [place] 02/24/2021 14:16
--- NOTE | 2021-02-24 13:55 | HMH.EDGENADL ---
ED Disposition Clinical Impression: Left shoulder strain Qualifiers: Encounter type: initial encounter Qualified Code(s): S46.912A - Strain of unspecified muscle, fascia and tendon at shoulder and upper arm level, left arm, initial encounter Disposition: Home, Self-Care Condition on Discharge: Good Instructions: DI for Shoulder Sprain, How to Use a Sling Additional Instructions: Use sling on left arm for 3 days. Ice 20 minutes 4-5 times a day for pain and swelling. Tylenol or ibuprofen for pain. Follow-up with Dr. Pate, orthopedics, next week if not improved. Call for appointment if not improving. Referrals: Provider,MD Madalyn [Primary Care Provider] - Lizandro Pate MD [Staff Physician] - - Critical Care Critical Care Time: No Attestation: On 02/24/21, the high probability of a clinically significant, sudden or life threatening deterioration of the following system(s) required my full and direct attention, intervention and personal management. The time I documented below is in addition to time spent performing reported procedures but includes the following listed in this critical care notation. Medical Decision Making - Mehran Inquiry Pt receiving controlled substance: No Vital Signs: 02/24/21 13:00 Temperature 98.6 F Temperature Source Oral Pulse Rate [Radial] 76 Respiratory Rate 16 Blood Pressure [Right Arm] 127/93 H Blood Pressure Mean [Right Arm] 104 Blood Pressure Position [Right Arm] Sitting 02 Sat by Pulse Oximetry 96 Oxygen Delivery Method Room Air Orders (Tests/Meds): ORDERS Category Date Time Status Shoulder XR left minimum 2 views [XR shoulder LT min 2V Exams 02/24/21 13:01 Taken ] Stat General Adult HPI - General Chief complaint: PAIN Stated complaint: pain Time Seen by Provider: 02/24/21 13:57 Mode of Arrival: EMS Limitations: No Limitations Description of Symptoms (Recalled from ER Triage Doc. by RN): to ed per squad with c/o lt shoulder pain. states he slipped down a ramp yesterday and landed on his shoulder. states pain started this morning. ibuprofen this am - History of Present Illness HPI narrative: States he slipped on a wet metal ramp yesterday falling and landing on his left shoulder. Complains of pain in his subacromial area. States he cannot raise his arm, but then goes on to raise his arm directly over his head with no difficulty. Denies other injuries. - Related Data Home Medications Medication Instructions Recorded Confirmed Melatonin 10 mg PO HS 01/04/19 01/04/19 risperiDONE [Risperidone] 0.5 mg PO BID 01/04/19 01/04/19 risperiDONE [Risperidone] 1 mg PO BID 08/19/20 10/09/20 Previous Rx's Medication Instructions Recorded Meloxicam [Mobic 15 mg tab] 15 mg PO DAILY #7 tab 01/04/19 Azithromycin [Zithromax 250mg 250 mg PO DIRECTED #6 tab 09/27/19 tab] Allergies Allergy/AdvReac Type Severity Reaction Status Date / Time No Known Allergies Allergy Verified 01/21/21 12:44 [facility] History - Hepatitis A Screen Drug use history?: No High risk sexual behaviors?: No History of sexually transmitted infection?: No Currently employed?: No Childcare worker?: No Do you have indoor plumbing?: Yes Do you have electricity?: Yes Attestation statement:: This patient has been screened for Hepatitis A risk factors. I have reviewed the patient's past medical history: Yes Medical History: Denies:: Cancer, Diabetes Mellitus Type 1, Diabetes Mellitus Type 2, MRSA Laterality Cases: Left: Arthroscopy Knee Amputation: No Fractures: No - Social History Smoking Status: Current every day smoker Tobacco Type: cigarettes # Packs/Day (cigarettes): 1 Alcohol Intake: never Alcohol Intake Frequency:: other Substance Use Type: marijuana Occupational Status: other Household Members: family ROS Obtained: Yes Systems reviewed as appropriate & no additional complaints - Musculoskeletal Musculoskeletal: Reports joint pain
--- NOTE | 2021-02-24 14:37 | PC.NURSE ---
sling applied to lt arm
[2021-02-24 14:38] VITALS: BP 125/78; PULSE 78; RESP 16; TEMP 36.6; O2SAT 96
== END 2021-02-24 14:39 | disposition home or self-care (01) ==
PROVIDERS: Emergency Provider Emergency Medicine
DX: S46.912A Strain of unspecified muscle, fascia and tendon at shoulder and upper arm level, left arm, initial encounter (principal); W01.0XXA Fall on same level from slipping, tripping and stumbling without subsequent striking against object, initial encounter; Y92.89 Other specified places as the place of occurrence of the external cause; F17.210 Nicotine dependence, cigarettes, uncomplicated
CPT/HCPCS: 73030; 73060; 99282

== ENCOUNTER 2021-03-11 10:00 | Outpatient (RCR) | payer MEDICAID, SELFPAY | END 2021-03-11 10:05 | disposition home or self-care (01) | LOC: PT 10:00 | PROVIDERS: Visit Provider Family Medicine Sports Medicine | DX: M25.562 Pain in left knee (principal); M21.862 Other specified acquired deformities of left lower leg | CPT/HCPCS: 97110; 97112; 97163; 97164; 97530 ==

== ENCOUNTER 2021-04-11 17:23 | Emergency (ER) | payer MEDICAID, SELFPAY ==
[2021-04-11 17:23] VITALS: BP 166/83; PULSE 90; RESP 16; TEMP 36.7; O2SAT 97; BMI 24.3
--- NOTE | 2021-04-11 17:49 | HMH.EDGENADL ---
ED Disposition Clinical Impression: Viral illness, Sore throat Disposition: Home, Self-Care Condition on Discharge: Good Additional Instructions: Stop smoking. Follow-up PCP in 2 to 3 days. Return emergency department for fever, difficulty swallowing. Referrals: Provider,Referral, [Primary Care Provider] - 3 days Time of Disposition: 17:51 - Critical Care Critical Care Time: No Attestation: On 04/11/21, the high probability of a clinically significant, sudden or life threatening deterioration of the following system(s) required my full and direct attention, intervention and personal management. The time I documented below is in addition to time spent performing reported procedures but includes the following listed in this critical care notation. Medical Decision Making - Medical Records Medical records reviewed: Yes: I reviewed the patient's medical records. - Mehran Inquiry Pt receiving controlled substance: No Medical Decision Narrative: 18-year-old male evaluated for sore throat. Patient no acute distress on initial evaluation. His physical exam is unremarkable. Patient's Centor score is 0. No further work-up initiated this time. Encouraged to stay well-hydrated, stop smoking. Follow-up PCP 1 to 2 days. General Adult HPI - General Stated complaint: sore throat Time Seen by Provider: 04/11/21 17:49 Mode of Arrival: Ambulatory - History of Present Illness HPI narrative: 20yo M that denies any past medical history reports emergency department secondary to sore throat. Symptoms been present for 2 to 3 days. Stable and not worsening. Endorses mild cough. Denies any rhinorrhea. Denies any fever. Able to eat and drink. Patient continues to smoke despite his sore throat. - Related Data Home Medications Medication Instructions Recorded Confirmed Melatonin 10 mg PO HS 01/04/19 01/04/19 risperiDONE [Risperidone] 0.5 mg PO BID 01/04/19 01/04/19 risperiDONE [Risperidone] 1 mg PO BID 08/19/20 10/09/20 Previous Rx's Medication Instructions Recorded Meloxicam [Mobic 15 mg tab] 15 mg PO DAILY #7 tab 01/04/19 Azithromycin [Zithromax 250mg 250 mg PO DIRECTED #6 tab 09/27/19 tab] Allergies Allergy/AdvReac Type Severity Reaction Status Date / Time No Known Allergies Allergy Verified 01/21/21 12:44 [facility] History - Hepatitis A Screen Drug use history?: No Attestation statement:: This patient has been screened for Hepatitis A risk factors. I have reviewed the patient's past medical history: Yes Medical History: Denies:: Cancer, Diabetes Mellitus Type 1, Diabetes Mellitus Type 2, MRSA Laterality Cases: Left: Arthroscopy Knee Amputation: No Fractures: No - Social History Smoking Status: Current every day smoker Tobacco Type: cigarettes # Packs/Day (cigarettes): 1 Alcohol Intake: never Alcohol Intake Frequency:: other Substance Use Type: marijuana Occupational Status: other Household Members: family ROS Obtained: Yes All systems reviewed & no additional complaints - ENT Ears, Nose, Mouth, and Throat: Reports as per HPI Physical Exam - General General appearance: alert, in no apparent distress - Head Head exam: atraumatic - Eye Eye exam: Present: normal appearance, PERRL, EOMI - ENT ENT exam: Present: normal exam, normal oropharynx, mucous membranes moist, TM's normal bilaterally, normal external ear exam - Respiratory Respiratory exam: Present: normal lung sounds bilaterally. Absent: respiratory distress - Cardiovascular Cardiovascular exam: Present: regular rate, normal rhythm. Absent: JVD - Abdominal Exam Abdominal exam: Present: soft, normal bowel sounds. Absent: distention, tenderness, guarding - Neurological Exam Neurological exam: Present: alert, oriented X3 - Psychiatric Psychiatric exam: Present: normal affect, normal mood - Skin Skin exam: Present: warm, dry, intact, normal color
[2021-04-11 18:20] VITALS: BP 166/83; PULSE 90; RESP 16; TEMP 36.7; O2SAT 97
== END 2021-04-11 18:21 | disposition home or self-care (01) ==
PROVIDERS: Emergency Provider Family Medicine
DX: B34.9 Viral infection, unspecified (principal); J02.9 Acute pharyngitis, unspecified; F17.210 Nicotine dependence, cigarettes, uncomplicated
CPT/HCPCS: 99281

== ENCOUNTER 2021-09-24 21:11 | Emergency (ER) | payer MEDICAID, SELFPAY ==
[2021-09-24 21:13] VITALS: BP 133/76; PULSE 74; RESP 16; TEMP 36.8; O2SAT 98; BMI 26.6
--- NOTE | 2021-09-24 21:56 | HMH.EDGENADL ---
ED Disposition Clinical Impression: Constipation Disposition: Home, Self-Care Condition on Discharge: Good Instructions: Constipation Additional Instructions: Please take mirilax and docusate senna daily until you have normal bowel movement. Please return if you begin to have abdominal pain, vomiting, abdominal distension, bloody stools or are unable to have bowel movement in 24 hours. Please drink plenty of water and follow up with your primary care physician in 2-3 days for further management. Prescriptions: Sennosides/Docusate Sodium [Docusate Sodium-Senna Tablet] 1 each PO BIDP PRN #30 tab PRN Reason: Constipation Transmission Status: Received by [id number] polyethylene glycoL 3350 [Miralax 17gm Packet] 17 gm PO DAILYP PRN #10 packet PRN Reason: Constipation Transmission Status: Received by [id number] Referrals: Provider,Referral, [Primary Care Provider] - - Critical Care Critical Care Time: No Attestation: On 09/24/21, the high probability of a clinically significant, sudden or life threatening deterioration of the following system(s) required my full and direct attention, intervention and personal management. The time I documented below is in addition to time spent performing reported procedures but includes the following listed in this critical care notation. Medical Decision Making - Medical Records Medical records reviewed: Yes: I reviewed the patient's medical records. - Mehran Inquiry Pt receiving controlled substance: No Vital Signs: 09/24/21 21:13 09/24/21 22:14 Temperature 98.2 F 98.2 F Temperature Source Oral Oral Pulse Rate 71 Pulse Rate [Left Radial] 74 Respiratory Rate 16 16 Blood Pressure 120/75 Blood Pressure [Right Arm] 133/76 Blood Pressure Mean [Right Arm] 95 Blood Pressure Source [Right Arm] Automatic Cuff Blood Pressure Position [Right Arm] Sitting 02 Sat by Pulse Oximetry 98 Oxygen Delivery Method Room Air - Lab Data Lab results reviewed: Yes: I reviewed the patient's lab results. Orders (Tests/Meds): ED MEDICATIONS Discontinued Medications Generic Name Dose Route Start Last Admin Trade Name Freq PRN Reason Stop Dose Admin Magnesium Citrate 10 oz 09/24/21 22:02 09/24/21 22:07 Magnesium Citrate 10oz Bottle PO 09/24/21 22:03 10 oz ONCE ONE Administration Medical Decision Narrative: Mr. Ponce is a 21-year-old male with no significant past medical history presents to the emergency department with constipation last bowel movement 4 days prior. Patient reports he is still passing gas. Patient is afebrile and hemodynamically stable on arrival. On physical exam patient has a benign abdomen nondistended nontender to palpation. No peritoneal signs noted. Low suspicion at this time for bowel obstruction given patient is still passing gas and has no other concerning signs on exam, no abd pain at this time. Patient is given MiraLAX as well as Docusate senna for aggressive outpatient bowel regiment. Patient is instructed to drink plenty of water and to return to the emergency department if he has not had a bowel movement in 24 hours. Patient will also follow-up with his primary care physician in 2 to 3 days for further management. Discharged in stable condition. General Adult HPI - General Chief complaint: Abdominal Pain Stated complaint: abd pain Time Seen by Provider: 09/24/21 21:15 Mode of Arrival: Ambulatory Limitations: No Limitations Description of Symptoms (Recalled from ER Triage Doc. by RN): PT REPORTS THAT HE HAS NOT HAD A BOWEL MOVEMENT FOR 4 DAYS AND HE HAS HAD PRUNES AND METAMUCIL WITHOUT RESULTS. PT STATES HE IS NOW HAVING CRAMPING. PT DENIES DIARRHEA, NAUSEA, AND VOMITING. - History of Present Illness HPI narrative: Mr. Ponce is a 21-year-old male with no significant past medical history presenting to the emergency department with constipation. Patient reports he has not had a bowel movement in 4
[2021-09-24 22:14] VITALS: BP 120/75; PULSE 71; RESP 16; TEMP 36.8; O2SAT 98
== END 2021-09-24 22:14 | disposition home or self-care (01) ==
PROVIDERS: Emergency Provider Student in an Organized Health Care Education/Training Program
DX: K59.00 Constipation, unspecified (principal)
CPT/HCPCS: 99283

== ENCOUNTER 2022-01-20 19:07 | Emergency (ER) | payer MEDICAID, SELFPAY ==
[2022-01-20 19:40] VITALS: BP 124/67; PULSE 81; RESP 19; TEMP 37.6; O2SAT 98; BMI 25.9
--- NOTE | 2022-01-20 19:51 | EXP.UTC ---
Discharge Plan Disposition Patient Disposition: Home, Self-Care Condition: Good Prescriptions Prescriptions: New jlgqjlyszvksmkv-ophbevsxp-IM [Bromfed DM] 2-30-10 mg/5 mL Syrup 5 - 10 ml PO Q4H PRN (Reason: Cough) Qty: 240 0RF amoxicillin-pot clavulanate 875-125 mg Tablet 1 tab PO Q12H Qty: 20 0RF prednisone [prednisone] 20 mg tablet 20 mg PO BID 5 Days Qty: 10 0RF No Action risperidone 0.5 MG tablet 0.5 mg PO BID melatonin 10 MG capsule 10 mg PO HS meloxicam 15 MG tablet 15 mg PO DAILY Qty: 7 0RF risperidone 1 MG tablet 1 mg PO BID azithromycin 250 MG tablet 250 mg PO DIRECTED Qty: 6 0RF Rx Instructions: Take two (2) tablets on day #1, then one (1) tablet day #2 thru #5 polyethylene glycol 3350 17 GM powder in packet 17 gm PO DAILYP PRN (Reason: Constipation) Qty: 10 0RF Rx Instructions: Please take the miralax and docusate senna every day until you have bowel movement. sennosides-docusate sodium 1 EACH tablet 1 each PO BIDP PRN (Reason: Constipation) Qty: 30 0RF Activity Restrictions/Add. Instructions Additional Instructions/Restrictions: Take all meds as prescribed until gone Follow up with PCP if not improving You have been tested for COVID19. Please isolate yourself as if you are positive until test results received. Current CDC guidelines are quarantine X 5 days from onset of symptoms, with an additional 5 days of mask wearing at all times. If you have difficulty breathing, signs of dehydration, etc please seek treatment at ER. Clinical Impressions Clinical Impression: Sinusitis Discharge ED Provider: Maggie Alvarado [facility] [place] HPI General Stated complaint: cough,congestion,body aches,runny nose with blood Mode of Arrival: Ambulatory Source of Information: Patient Time Seen by Provider: 01/20/22 20:19 Description of Symptoms (Recalled from Triage Doc. by RN): pt comes in with c/o headache, body aches, runny nose. symptoms have been ongoing for 3 days HEENT Symptoms (Recalled from RN notes): Yes Resp Symptoms (Recalled from RN notes): Yes Skin Symptoms (Recalled from RN notes): No MS Symptoms (Recalled from RN notes): No Functional Status (Recalled from RN notes): n/a History of Present Illness Provider Complaint: Cough, congestion, runny nose, bloody mucous X 3 days. No fever. Productive cough. No vomiting or diarrhea. Onset (ago): day(s) (3) Severity: moderate Relieving factors: none Exacerbating factors: none Associated symptoms: cough and headaches Treatments prior to arrival: none Related Data Home Medications Medication Instructions Recorded Confirmed melatonin 10 mg capsule 10 mg PO HS Insomnia 01/04/19 01/04/19 risperidone 0.5 mg tablet 0.5 mg PO BID Anxiety 01/04/19 01/04/19 risperidone 1 mg tablet 1 mg PO BID ANGER PROBLEMS 08/19/20 10/09/20 Previous Rx's Medication Instructions Recorded meloxicam 15 mg tablet 15 mg PO DAILY #7 tabs 01/04/19 azithromycin 250 mg tablet 250 mg PO DIRECTED #6 tabs 09/27/19 polyethylene glycol 3350 17 gram 17 gm PO DAILYP PRN Constipation 09/24/21 oral powder packet #10 packets sennosides 8.6 mg-docusate sodium 1 each PO BIDP PRN Constipation 09/24/21 50 mg tablet #30 tabs amoxicillin 875 mg-potassium 1 tab PO Q12H #20 tabs 01/20/22 clavulanate 125 mg tablet wpyjephpmmaacoq-qmwwimtczbzswbx-NU 5 - 10 ml PO Q4H PRN Cough #240 mL 01/20/22 2 mg-30 mg-10 mg/5 mL oral syrup (Bromfed DM) prednisone 20 mg tablet 20 mg PO BID 5 days #10 tabs 01/20/22 Allergies Allergy/AdvReac Type Severity Reaction Status Date / Time No Known Allergies Allergy Verified 01/20/22 19:42 Worker's Comp Is this a Worker's Comp case?: No PFSH PFSH Social History (System 01/21/21 @ 12:44 by Frida Bateman) Smoking Status: Current every day smoker tobacco type: cigarettes packs per day: 1 second hand exposure: Yes alcohol intake: never substance use type: marijuana curre
[2022-01-20 20:28] VITALS: BP 124/67; PULSE 81; RESP 19; TEMP 37.6
== END 2022-01-20 20:33 | disposition home or self-care (01) ==
PROVIDERS: Emergency Provider Physician Assistant
DX: U07.1 COVID-19 (principal); J32.9 Chronic sinusitis, unspecified; K59.00 Constipation, unspecified; F17.210 Nicotine dependence, cigarettes, uncomplicated; Z79.52 Long term (current) use of systemic steroids; Z79.899 Other long term (current) drug therapy
CPT/HCPCS: 96372; 99213; C9803; G0463; J0696; J1040; U0003; U0005

== ENCOUNTER 2022-08-25 19:02 | Emergency (ER) | payer MEDICAID, SELFPAY ==
[2022-08-25 19:05] VITALS: BP 131/86; PULSE 81; RESP 18; TEMP 36.8; O2SAT 100; BMI 20.2
[2022-08-25 19:34] VITALS: BP 131/86; PULSE 81; RESP 18; TEMP 36.8; O2SAT 100
--- NOTE | 2022-08-25 19:38 | EXP.UTC ---
Discharge Plan Disposition Patient Disposition: Home, Self-Care Condition: Good Prescriptions Prescriptions: No Action risperidone 0.5 MG tablet 0.5 mg PO BID melatonin 10 MG capsule 10 mg PO HS meloxicam 15 MG tablet 15 mg PO DAILY Qty: 7 0RF risperidone 1 MG tablet 1 mg PO BID szrcctrhbwgdhfn-vdgojpvnv-GQ [Bromfed DM] 2-30-10 mg/5 mL Syrup 5 - 10 ml PO Q4H PRN (Reason: Cough) Qty: 240 0RF amoxicillin-pot clavulanate 875-125 mg Tablet 1 tab PO Q12H Qty: 20 0RF prednisone [prednisone] 20 mg tablet 20 mg PO BID 5 Days Qty: 10 0RF azithromycin 250 MG tablet 250 mg PO DIRECTED Qty: 6 0RF Rx Instructions: Take two (2) tablets on day #1, then one (1) tablet day #2 thru #5 polyethylene glycol 3350 17 GM powder in packet 17 gm PO DAILYP PRN (Reason: Constipation) Qty: 10 0RF Rx Instructions: Please take the miralax and docusate senna every day until you have bowel movement. sennosides-docusate sodium 1 EACH tablet 1 each PO BIDP PRN (Reason: Constipation) Qty: 30 0RF Referrals Follow up/Referrals: Provider,MD Madalyn [Primary Care Provider] - See instructions Bora Shearer MD [Referring] - See instructions Activity Restrictions/Add. Instructions Additional Instructions/Restrictions: Follow up with your Family Doctor if needed Follow up with Urology if you have any pain, swelling or redness in your testicles or difficulty urinating Return if needed Straight to ER if any life threatening symptoms Clinical Impressions Clinical Impression: Testicle trouble Discharge ED [place] [facility] [place] General Stated complaint: Privite area swollen Mode of Arrival: Ambulatory Source of Information: Patient Limitations: No Limitations Time Seen by Provider: 08/25/22 19:38 Description of Symptoms (Recalled from Triage Doc. by RN): PATIENT STATES HE BELIEVES HIS TESTICALS ARE HANGING LOWER THAN NORMAL. DENIES ANY PAIN, SWELLING OR REDNESS HEENT Symptoms (Recalled from RN notes): No Resp Symptoms (Recalled from RN notes): No Skin Symptoms (Recalled from RN notes): No MS Symptoms (Recalled from RN notes): No Functional Status (Recalled from RN notes): WNL History of Present Illness Provider Complaint: Patient states that he noticed his testicles are starting to hang lower than what they use too and he was wanting to see if there was someone that could do surgery and pull them back up States that he hasnt had any pain, no redness, no swelling no difficulty urinating, no difficulty getting a erection or abdominal or pelvic pain Related Data Home Medications Medication Instructions Recorded Confirmed melatonin 10 mg capsule 10 mg PO HS Insomnia 01/04/19 01/04/19 risperidone 0.5 mg tablet 0.5 mg PO BID Anxiety 01/04/19 01/04/19 risperidone 1 mg tablet 1 mg PO BID ANGER PROBLEMS 08/19/20 10/09/20 Previous Rx's Medication Instructions Recorded meloxicam 15 mg tablet 15 mg PO DAILY #7 tabs 01/04/19 azithromycin 250 mg tablet 250 mg PO DIRECTED #6 tabs 09/27/19 polyethylene glycol 3350 17 gram 17 gm PO DAILYP PRN Constipation 09/24/21 oral powder packet #10 packets sennosides 8.6 mg-docusate sodium 1 each PO BIDP PRN Constipation 09/24/21 50 mg tablet #30 tabs amoxicillin 875 mg-potassium 1 tab PO Q12H #20 tabs 01/20/22 clavulanate 125 mg tablet awyrkhpddmiaxyk-guvkajthmyqsuce-WI 5 - 10 ml PO Q4H PRN Cough #240 mL 01/20/22 2 mg-30 mg-10 mg/5 mL oral syrup (Bromfed DM) prednisone 20 mg tablet 20 mg PO BID 5 days #10 tabs 01/20/22 Allergies Allergy/AdvReac Type Severity Reaction Status Date / Time No Known Allergies Allergy Verified 01/20/22 19:42 Worker's Comp Is this a Worker's Comp case?: No PFSH PFS Disclaimer: The information contained in this section may have been updated after the patient was seen, as this information can be updated by other users. Social History (System 01/21/21 @ 12:44 by Frida Bateman
== END 2022-08-25 20:04 | disposition home or self-care (01) ==
PROVIDERS: Emergency Provider Nurse Practitioner
DX: N50.89 Other specified disorders of the male genital organs (principal); F17.210 Nicotine dependence, cigarettes, uncomplicated
CPT/HCPCS: 99212; 99213; G0463

== ENCOUNTER 2022-10-30 08:49 | Emergency (ER) | payer MEDICAID, SELFPAY ==
[2022-10-30 08:50] VITALS: BP 110/86; PULSE 76; RESP 18; TEMP 36.9; O2SAT 98; BMI 28.4
--- NOTE | 2022-10-30 08:59 | EXP.UTC ---
Discharge Plan Disposition Patient Disposition: Home, Self-Care Condition: Good Prescriptions Prescriptions: New Visine Dry Eye Relief 1 % drops 1 drp ophthalmic (eye) BID PRN (Reason: dry eye(s)) Qty: 30 0RF No Action propranolol 10 mg tablet 10 mg PO DAILY Referrals Follow up/Referrals: Provider,Referral, MD [Primary Care Provider] - See instructions Activity Restrictions/Add. Instructions Additional Instructions/Restrictions: Use drops as directed Follow up with Eye Doctor if symptoms persist Return if needed Clinical Impressions Clinical Impression: Dry eye Instructions Patient Instructions: How to Instill Eye Drops Discharge ED Provider: Mary Solares [facility] [place] General Stated complaint: Eye redness Mode of Arrival: Ambulatory Source of Information: Patient Limitations: No Limitations Time Seen by Provider: 10/30/22 08:59 Description of Symptoms (Recalled from Triage Doc. by RN): PATIENT C/O REDNESS AND DRYNESS TO BIALTERAL EYES HEENT Symptoms (Recalled from RN notes): Yes Resp Symptoms (Recalled from RN notes): No Skin Symptoms (Recalled from RN notes): No MS Symptoms (Recalled from RN notes): No Functional Status (Recalled from RN notes): WNL History of Present Illness Provider Complaint: Patient states that he was in physical therapy and noticed his eyes was feeling dry States that they was a little red this morning when he woke up but denies pain, denies drainage and denies matting Related Data Home Medications Medication Instructions Recorded Confirmed propranolol 10 mg tablet 10 mg PO DAILY . 10/30/22 10/30/22 Previous Rx's Medication Instructions Recorded polyethylene glycol 400 1 % eye 1 drp ophthalmic (eye) BID PRN dry 10/30/22 drops (Visine Dry Eye Relief) eye(s) #30 mL Allergies Allergy/AdvReac Type Severity Reaction Status Date / Time No Known Allergies Allergy Verified 01/20/22 19:42 Worker's Comp Is this a Worker's Comp case?: No [facility] Disclaimer: The information contained in this section may have been updated after the patient was seen, as this information can be updated by other users. Social History (System 01/21/21 @ 12:44 by Frida Bateman) Smoking Status: Current every day smoker tobacco type: cigarettes packs per day: 1 second hand exposure: Yes alcohol intake: never substance use type: marijuana current occupational status: other Travel in the last 8 weeks: None household members: family ROS Obtained: Yes All systems reviewed & no additional complaints except as documented and Yes Systems reviewed as appropriate & no additional complaints except as documented Eyes Eyes: Reports system reviewed and no additional complaints, except as documented, Reports as per HPI and Reports dry eyes ENT Ears, Nose, Mouth, and Throat: Reports system reviewed and no additional complaints, except as documented and Reports as per HPI Cardiovascular Cardiovascular: Reports system reviewed and no additional complaints, except as documented and Reports as per HPI Respiratory Respiratory: Reports system reviewed and no additional complaints, except as documented and Reports as per HPI Gastrointestinal Gastrointestingal: Reports system reviewed and no additional complaints, except as documented and as per HPI Genitourinary Male Genitourinary: Reports system reviewed and no additional complaints, except as documented and Reports as per HPI Musculoskeletal Musculoskeletal: Reports system reviewed and no additional complaints, except as documented and Reports as per HPI Neurologic Neurologic: Reports system reviewed and no additional complaints, except as documented and Reports as per HPI Physical Exam General General appearance: alert and in no apparent distress Eye Eye exam: Present other (reports feeling of dryness); Absent conjunctival redness or discharge Respiratory Respiratory exam: Present normal lung sounds bilaterally; Absent respir
[2022-10-30 09:00] VITALS: BP 110/86; PULSE 76; RESP 18; TEMP 36.9; O2SAT 98
== END 2022-10-30 09:10 | disposition home or self-care (01) ==
PROVIDERS: Emergency Provider Nurse Practitioner
DX: H04.129 Dry eye syndrome of unspecified lacrimal gland (principal); F17.210 Nicotine dependence, cigarettes, uncomplicated
CPT/HCPCS: 99212; 99213; G0463

== ENCOUNTER 2022-11-06 08:12 | Emergency (ER) | payer MEDICAID, SELFPAY ==
[2022-11-06 08:13] VITALS: BP 126/72; PULSE 88; RESP 16; TEMP 36.8; O2SAT 97; BMI 27.3
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
[2022-11-06 08:39] LABS: Coronavirus 19, PCR Not Detected (NotDetected); Influenza A, PCR Not Detected (NotDetected); Influenza B, PCR Not Detected (NotDetected)
[2022-11-06 09:58] VITALS: BP 126/72; PULSE 88; RESP 16; TEMP 36.8
== END 2022-11-06 10:00 | disposition home or self-care (01) ==
PROVIDERS: Emergency Provider Emergency Medicine
DX: J06.9 Acute upper respiratory infection, unspecified (principal); R06.02 Shortness of breath; Z20.822 Contact with and (suspected) exposure to COVID-19; F17.210 Nicotine dependence, cigarettes, uncomplicated
CPT/HCPCS: 87635; 87636; 99282; 99283; C9803; U0003; U0005

== ENCOUNTER 2023-01-07 09:41 | Emergency (ER) | payer MEDICAID, SELFPAY ==
[2023-01-07 09:42] VITALS: BP 127/68; PULSE 52; RESP 18; TEMP 36.8; O2SAT 99; BMI 22.9
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
[2023-01-07 10:40] VITALS: BP 127/68; PULSE 52; RESP 18; TEMP 36.8; O2SAT 99
== END 2023-01-07 10:41 | disposition home or self-care (01) ==
PROVIDERS: Emergency Provider Nurse Practitioner Family
DX: K59.09 Other constipation (principal); F17.210 Nicotine dependence, cigarettes, uncomplicated
CPT/HCPCS: 99212; 99214; G0463

== ENCOUNTER 2023-02-01 10:29 | Emergency (ER) | payer MEDICAID, SELFPAY ==
[2023-02-01 10:36] VITALS: BP 128/85; PULSE 68; RESP 16; TEMP 36.9; O2SAT 97; BMI 25.2
--- NOTE | 2023-02-01 10:43 | PC.NURSE ---
Dr. Paulson at [facility] for pt eval
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
[2023-02-01 10:57] VITALS: BP 128/85; PULSE 68; RESP 16; TEMP 36.6
== END 2023-02-01 10:58 | disposition home or self-care (01) ==
PROVIDERS: Emergency Provider Emergency Medicine
DX: K64.9 Unspecified hemorrhoids (principal); K59.00 Constipation, unspecified; F17.210 Nicotine dependence, cigarettes, uncomplicated; Z87.820 Personal history of traumatic brain injury
CPT/HCPCS: 99283

== ENCOUNTER 2023-02-02 09:10 | Emergency (ER) | payer MEDICAID, SELFPAY ==
[2023-02-02 09:11] VITALS: BP 129/77; PULSE 96; RESP 18; TEMP 36.9; O2SAT 98; BMI 26.5
--- NOTE | 2023-02-02 09:20 | ECG_ITS ---
APPROVED REPORT Exam: Resting ECG HR:95 bpm ECG Measurements Heart Rate 95 AXES NV 152 P 60 QRSd 84 QRS 42 QT 329 T 52 QTc 381 Conclusion SINUS RHYTHM POSSIBLE LEFT ATRIAL ENLARGEMENT [-0.1mV P-WAVE IN V1/V2] POSSIBLE RIGHT VENTRICULAR CONDUCTION DELAY [RSR (QR) IN V1/V2] BORDERLINE ECG UNCONFIRMED REPORT Electronically signed by : Kendall Delatorre MD 02/04/2023 07:39:12
--- NOTE | 2023-02-02 09:22 | PC.NURSE ---
Dr. Tellez at [facility] for pt eval
--- NOTE | 2023-02-02 09:36 | HMH.EDGENADL ---
Discharge Plan Disposition Patient Disposition: Still a Patient Prescriptions Prescriptions: No Action propranolol 10 mg tablet 10 mg PO DAILY Visine Dry Eye Relief 1 % drops 1 drp ophthalmic (eye) BID PRN (Reason: dry eye(s)) Qty: 30 0RF docusate sodium [Colace] 100 mg capsule 100 mg PO DAILY Qty: 30 5RF polyethylene glycol 3350 [Miralax] 17 gram/dose powder 17 g PO DAILY PRN (Reason: constipation) Qty: 238 0RF polyethylene glycol 3350 [Miralax] 17 gram/dose powder 17 g PO DAILY Qty: 119 1RF senna 8.6 mg capsule 8.6 mg PO DAILY Qty: 30 0RF hydrocortisone acetate [Anucort-HC] 25 mg suppository 25 mg MI DAILY 14 Days Qty: 12 0RF Referrals Follow up/Referrals: Provider,Referral, MD [Primary Care Provider] - See instructions Activity Restrictions/Add. Instructions Additional Instructions/Restrictions: Please maintain adequate hydration with sodium and glucose containing solution such as Gatorade Powerade Pedialyte etc. Drink until your urine is clear. Return with any worsening symptoms. Clinical Impressions Clinical Impression: Orthostatic dizziness, Acute dehydration Discharge ED Provider: Joe Tellez General Adult HPI General Chief complaint: Recheck/Abnormal Lab/Rx Stated complaint: lightheaded Time Seen by Provider: 02/02/23 09:20 History of Present Illness HPI narrative: Patient is a 22-year-old male with a history of traumatic brain injury who gets 3-day a week physical therapy was at our hospital physical therapy today doing physical activity and got lightheaded and sent to the emergency department. States his urines been darker than normal but has not had any significant decrease in p.o. intake or nausea vomiting diarrhea. Denies any symptoms at the moment. No chest pain shortness of breath etc. Related Data Home Medications Medication Instructions Recorded Confirmed propranolol 10 mg tablet 10 mg PO DAILY . 10/30/22 10/30/22 Previous Rx's Medication Instructions Recorded polyethylene glycol 400 1 % eye 1 drp ophthalmic (eye) BID PRN dry 10/30/22 drops (Visine Dry Eye Relief) eye(s) #30 mL docusate sodium 100 mg capsule 100 mg PO DAILY #30 caps 01/07/23 (Colace) polyethylene glycol 3350 17 17 g PO DAILY PRN constipation 01/07/23 gram/dose oral powder (Miralax) #238 grams hydrocortisone acetate 25 mg 25 mg MI DAILY 2 weeks #12 ea 02/01/23 rectal suppository (Anucort-HC) polyethylene glycol 3350 17 17 g PO DAILY #119 grams 02/01/23 gram/dose oral powder (Miralax) sennosides 8.6 mg capsule (senna) 8.6 mg PO DAILY #30 caps 02/01/23 Allergies Allergy/AdvReac Type Severity Reaction Status Date / Time No Known Allergies Allergy Verified 01/20/22 19:42 [facility] Disclaimer: The information contained in this section may have been updated after the patient was seen, as this information can be updated by other users. Social History Smoking Status: Former smoker second hand exposure: Yes alcohol intake: never substance use type: marijuana current occupational status: other Travel in the last 8 weeks: None household members: family ROS Obtained: Yes All systems reviewed & no additional complaints except as documented Physical Exam General General appearance: alert and in no apparent distress Respiratory Respiratory exam: Present normal lung sounds bilaterally Cardiovascular Cardiovascular exam: Present tachycardia (Heart rate 90 at rest upon standing it joao to 110) Neurological Exam Neurological exam: Present alert and oriented X3 Medical Decision Making Mehran Inquiry Pt receiving controlled substance: No Vital Signs: 02/02/23 09:11 02/02/23 09:37 Temperature 98.5 F Temperature Source Oral Pulse Rate [Left Radial] 96 H Respiratory Rate 18 Blood Pressure [Right Arm] 129/77 Blood Pressure Mean [Right Arm] 94 Blood Pressure Source [Right Arm] Automa
[2023-02-02 09:37] VITALS: O2SAT 99
[2023-02-02 09:49] LABS: Basophils # 0.1 K/mm3 (0-0.2); Basophils % 1.4 % (0.1-2.0); Eosinophils # 0.3 K/mm3 (0.0-0.4); Eosinophils % 4.2 % (0.1-12.0); Hematocrit 49.4 % (42.0-52.0); Hemoglobin 16.1 g/dL (14.1-18.0); Lymphocytes # 2.3 K/mm3 (0.7-4.5); Lymphocytes % 28.7 % (10-50); Mean Corpuscular HGB Conc 32.5 g/dL (31.8-35.4); Mean Corpuscular Hemoglobin 28.9 pg (27.0-31.2); Mean Corpuscular Volume 88.8 fl (80-94); Mean Platelet Volume 8.3 fl (7.4-10.4); Monocytes # 0.4 K/mm3 (0.1-1.0); Monocytes % 5.3 % (1.7-9.3); Neutrophils # 4.8 K/mm3 (1.8-7.8); Neutrophils % 60.4 % (37.0-80.0); Platelet Count 276 K/mm3 (142-424); Red Blood Count 5.56 M/mm3 (4.60-6.20); Red Cell Distribution Width 13.3 % (11.5-17.5)
[2023-02-02 09:55] LABS: Alanine Aminotransferase 37 U/L (12-78); Albumin Level 4.7 g/dl (3.5-5.0); Albumin/Globulin Ratio 1.5 (1.1-1.8); Alkaline Phosphatase 56 U/L (38-126); Anion Gap 13.3 mEq/L (5-15); Aspartate Amino Transferase 28 U/L (17-59); Bilirubin,Total 0.3 mg/dl (0.2-1.3); Blood Urea Nitrogen 14 mg/dl (9-20); Calcium 9.5 mg/dl (8.4-10.2); Carbon Dioxide 29 mmol/L (22.0-30.0); Chloride 103 mmol/L (98-107); Creatinine Clearance Estimated 135 mL/min (50-200); Estimated Glomerular Filt Rate 92 ml/min (>60); GFR (African American) 111 ML/MIN (>60); Globulin 3.1 g/dL (1.3-3.2); Glucose 122 mg/dl (74-100); Potassium 4.3 mmoL/L (3.5-5.1); Sodium 141 mmol/L (136-145); Total Protein,Serum 7.8 g/dl (6.3-8.2)
[2023-02-02 11:26] VITALS: BP 126/84; PULSE 65; RESP 16; TEMP 36.7
== END 2023-02-02 11:26 | disposition home or self-care (01) ==
PROVIDERS: Emergency Provider Student in an Organized Health Care Education/Training Program
DX: E86.0 Dehydration (principal); R42 Dizziness and giddiness; Z87.820 Personal history of traumatic brain injury; Z87.891 Personal history of nicotine dependence
CPT/HCPCS: 80053; 85025; 93005; 96360; 99284

== ENCOUNTER 2023-02-08 21:12 | Emergency (ER) | payer MEDICAID, SELFPAY ==
[2023-02-08 21:14] VITALS: BP 126/65; PULSE 88; RESP 20; TEMP 37.6; O2SAT 98; BMI 25.9
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
[2023-02-08 22:00] VITALS: BP 111/62; PULSE 92; RESP 19; O2SAT 97
[2023-02-08 22:15] LABS: Influenza A, PCR Not Detected (NotDetected); Influenza B, PCR Not Detected (NotDetected)
[2023-02-08 22:21] LABS: Strep Scrn Group A (Rapid) Negative (Negative)
[2023-02-08 22:36] LABS: Coronavirus 19, PCR Detected (NotDetected)
[2023-02-08 23:18] VITALS: BP 109/68; PULSE 85; RESP 19; TEMP 36.8; O2SAT 98
== END 2023-02-08 23:38 | disposition home or self-care (01) ==
PROVIDERS: Emergency Provider Emergency Medicine
DX: U07.1 COVID-19 (principal); R51.9 Headache, unspecified; F17.210 Nicotine dependence, cigarettes, uncomplicated
CPT/HCPCS: 87430; 87636; 99283

== ENCOUNTER 2023-06-09 19:05 | Emergency (ER) | payer MEDICAID, SELFPAY ==
[2023-06-09 19:06] VITALS: PULSE 74; RESP 18; TEMP 36.7; O2SAT 99; BMI 23.6
--- NOTE | 2023-06-09 20:30 | HMH.EDGENADL ---
Discharge Plan Disposition Patient Disposition: Home, Self-Care Prescriptions Prescriptions: No Action propranolol 10 mg tablet 10 mg PO DAILY Referrals Follow up/Referrals: Provider,Referral, MD [Primary Care Provider] - See instructions Activity Restrictions/Add. Instructions Additional Instructions/Restrictions: Please take miralax half a cap twice a day and double every three days until stool is soft daily, then stay on this dose for several weeks. Clinical Impressions Clinical Impression: Constipation Instructions Patient Instructions: DI for Acute Abdominal Pain Discharge ED Provider: Joe Tellez General Adult HPI General Chief complaint: Abdominal Pain Stated complaint: unable to have a bowel movement Time Seen by Provider: 06/09/23 20:26 Mode of Arrival: Ambulatory Source of Information: Patient Limitations: No Limitations Description of Symptoms (Recalled from ER Triage Doc. by RN): Patient states he is having vadim lower abdomen pain that started last night. States he feels as if he is constipated. History of Present Illness HPI narrative: Patient is a 23-year-old male presents today with abdominal discomfort and decreased bowel movements. States this is been ongoing slightly for the last month he had very hard stools in the past has been trying senna at home without any significant improvement. Denies any nausea or vomiting no fevers or chills no other symptoms including blood in the stool etc. Related Data Home Medications Medication Instructions Recorded Confirmed propranolol 10 mg tablet 10 mg PO DAILY anxiety/pressure 10/30/22 02/08/23 Allergies Allergy/AdvReac Type Severity Reaction Status Date / Time No Known Allergies Allergy Verified 01/20/22 19:42 [facility] Disclaimer: The information contained in this section may have been updated after the patient was seen, as this information can be updated by other users. Social History Smoking Status: Current every day smoker tobacco type: cigarettes packs per day: 1 second hand exposure: Yes alcohol intake: never substance use type: marijuana current occupational status: other Travel in the last 8 weeks: None household members: family ROS Obtained: Yes All systems reviewed & no additional complaints except as documented Physical Exam General General appearance: alert Respiratory Respiratory exam: Present normal lung sounds bilaterally Cardiovascular Cardiovascular exam: Present regular rate and diastolic murmur Abdominal Exam Abdominal exam: Present soft and tenderness (Very mild tenderness with deep palpation); Absent distention Neurological Exam Neurological exam: Present alert and oriented X3 Medical Decision Making Mehran Inquiry Pt receiving controlled substance: No Vital Signs: 06/09/23 19:06 Temperature 98.1 F Temperature Source Oral Pulse Rate [Radial] 74 Respiratory Rate 18 02 Sat by Pulse Oximetry 99 Oxygen Delivery Method Room Air Medical Decision Narrative: Patient is a 23-year-old male with a benign abdominal exam presents today with decreased bowel movements over the last month most likely constipation. I advised him that we have multiple options including prescribing him some medications and seeing if this works in outpatient setting versus doing an enema now and then adding MiraLAX on he chose the latter. Will reassess after his enema administration and reassessment. Unlikely this is a bowel obstruction or surgical pathology. Reassessment 948 patient had significant improvement after enema had a very large bowel movement serial abdominal exams were benign. He has been advised to escalate to MiraLAX and return emergency any worsening symptoms. Critical Care Critical Care Time Critical Care Time: No
--- NOTE | 2023-06-09 20:57 | PC.NURSE ---
Fleets enema given, pt tolerated well
--- NOTE | 2023-06-09 21:36 | PC.NURSE ---
pt reports having a large bowel movement after enema, reports feeling a lot better
[2023-06-09 21:52] VITALS: BP 118/68; PULSE 68; RESP 16; TEMP 36.7; O2SAT 99
== END 2023-06-09 21:53 | disposition home or self-care (01) ==
PROVIDERS: Emergency Provider Student in an Organized Health Care Education/Training Program
DX: R10.31 Right lower quadrant pain (principal); R10.32 Left lower quadrant pain; K59.00 Constipation, unspecified; F17.210 Nicotine dependence, cigarettes, uncomplicated
CPT/HCPCS: 99283

== ENCOUNTER 2023-08-27 12:00 | Outpatient (CLI) | payer MEDICAID, SELFPAY ==
[2023-08-27 17:46] LABS: Basophils # 0.1 K/mm3 (0-0.2); Basophils % 1.1 % (0.1-2.0); Eosinophils # 0.1 K/mm3 (0.0-0.4); Eosinophils % 1.7 % (0.1-12.0); Hematocrit 52.4 % (42.0-52.0); Hemoglobin 17.3 g/dL (14.1-18.0); Lymphocytes # 1.6 K/mm3 (0.7-4.5); Lymphocytes % 20.3 % (10-50); Mean Corpuscular Hemoglobin 30.5 pg (27.0-31.2); Mean Corpuscular Volume 92.6 fl (80-94); Mean Platelet Volume 8.7 fl (7.4-10.4); Monocytes # 0.5 K/mm3 (0.1-1.0); Monocytes % 5.8 % (1.7-9.3); Neutrophils # 5.5 K/mm3 (1.8-7.8); Neutrophils % 71.1 % (37.0-80.0); Platelet Count 308 K/mm3 (142-424); Red Blood Count 5.66 M/mm3 (4.60-6.20); Red Cell Distribution Width 13.1 % (11.5-17.5); White Blood Count 7.7 K/mm3 (4.8-10.8)
[2023-08-27 18:15] LABS: Alanine Aminotransferase 18 U/L (12-78); Albumin Level 5.2 g/dl (3.5-5.0); Alkaline Phosphatase 54 U/L (38-126); Amylase 57 U/L (30-110); Anion Gap 14.1 mEq/L (5-15); Aspartate Amino Transferase 23 U/L (17-59); Bilirubin,Total 0.6 mg/dl (0.2-1.3); Blood Urea Nitrogen 11 mg/dl (9-20); Calcium 10.4 mg/dl (8.4-10.2); Carbon Dioxide 31 mmol/L (22.0-30.0); Chloride 102 mmol/L (98-107); Estimated Glomerular Filt Rate 91 ml/min (>60); GFR (African American) 110 ML/MIN (>60); Globulin 2.6 g/dL (1.3-3.2); Glucose 57 mg/dl (74-100); Lipase 55 U/L (23-300); Potassium 5.1 mmoL/L (3.5-5.1); Sodium 142 mmol/L (136-145); Total Protein,Serum 7.8 g/dl (6.3-8.2)
== END 2023-08-27 23:59 | disposition home or self-care (01) ==
LOC: LAB.DROPOF 08-28 12:00
PROVIDERS: PCP Nurse Practitioner Family; Visit Provider Nurse Practitioner Family
DX: K59.00 Constipation, unspecified (principal)
CPT/HCPCS: 80053; 82150; 83690; 84443; 85025

== ENCOUNTER 2023-08-30 14:27 | Emergency (ER) | payer MEDICAID, SELFPAY ==
[2023-08-30 14:29] VITALS: BP 127/77; PULSE 64; RESP 18; TEMP 37; O2SAT 100; BMI 24.0
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
[2023-08-30 14:57] VITALS: BP 113/70; PULSE 79; RESP 16; TEMP 37; O2SAT 99
== END 2023-08-30 14:58 | disposition home or self-care (01) ==
PROVIDERS: Emergency Provider Emergency Medicine
DX: F52.4 Premature ejaculation (principal); F17.210 Nicotine dependence, cigarettes, uncomplicated
CPT/HCPCS: 99282

== ENCOUNTER 2023-09-10 14:08 | Outpatient (CLI) | payer MEDICAID, SELFPAY ==
--- NOTE | 2023-09-10 14:12 | XR_ITS ---
FINAL REPORT CLINICAL HISTORY: constipation FINDINGS: SINGLE VIEW ABDOMEN A single view of the abdomen was obtained. There is a nonobstructive bowel gas pattern. There are no abnormally dilated loops of small bowel. No abnormal calcifications are identified. IMPRESSION: Nonobstructive bowel gas pattern. Reviewed, Interpreted and Dictated by Margarita Anthony MD Transcribed by Radha Reed Authenticated and [facility]
== END 2023-09-10 23:59 | disposition home or self-care (01) ==
LOC: RAD 14:09
PROVIDERS: Visit Provider Nurse Practitioner Family
DX: K59.00 Constipation, unspecified (principal)
CPT/HCPCS: 74019

== ENCOUNTER 2023-11-06 16:32 | Emergency (ER) | payer MEDICAID, SELFPAY ==
[2023-11-06 16:33] VITALS: BP 139/73; PULSE 82; RESP 18; TEMP 36.9; O2SAT 97; BMI 22.9
--- NOTE | 2023-11-06 16:35 | ED_ITS ---
<Statement entered by Juli Paulson DO - 11/06/23 18:47> I was consulted by the PRANAV, and we discussed the complexity of the problems being addressed. I approved the treatment and management plan for this patient's care in the emergency department, thus performing a substantive portion of the medical decision making. Juli Paulson DO Discharge Plan Disposition Patient Disposition: Home, Self-Care Condition: Good Prescriptions Prescriptions: No Action olanzapine 5 mg tablet,disintegrating 5 mg PO DAILY aspirin 81 mg tablet,delayed release (DR/EC) 81 mg PO DAILY linaclotide 290 mcg capsule 290 mcg PO DAILY 30 Days Qty: 30 0RF propranolol 10 mg tablet 10 mg PO DAILY Referrals Follow up/Referrals: Bia Dasilva APRN [Primary Care Provider] - See instructions Activity Restrictions/Add. Instructions Additional Instructions/Restrictions: Decrease the frequency and increase the interval in between your vaping to improve your symptoms. You may take Tylenol alternating with Motrin for symptoms as needed. Return to ER for any worsening signs or symptoms as needed. Clinical Impressions Clinical Impression: Pharyngitis Qualifiers: Pharyngitis/tonsillitis etiology: unspecified etiology Qualified Code(s): J02.9 - Acute pharyngitis, unspecified Instructions Patient Instructions: Sore Throat Discharge ED Provider: Juli Paulson General Adult HPI General Chief complaint: Upper Respiratory Infection Stated complaint: sore throat Time Seen by Provider: 11/06/23 16:35 History of Present Illness HPI narrative: Patient presents for evaluation of sore throat. Patient states his throat began hurting at night and is increased today. He denies cough congestion fever chills hemoptysis hematochezia melena nausea vomiting diarrhea. Related Data Home Medications Medication Instructions Recorded Confirmed propranolol 10 mg tablet 10 mg PO DAILY anxiety/pressure 10/30/22 10/31/23 aspirin 81 mg tablet,delayed 81 mg PO DAILY 08/27/23 10/31/23 release olanzapine 5 mg disintegrating 5 mg PO DAILY 08/27/23 10/31/23 tablet Previous Rx's Medication Instructions Recorded linaclotide 290 mcg capsule 290 mcg PO DAILY 30 days #30 caps 10/31/23 Allergies Allergy/AdvReac Type Severity Reaction Status Date / Time No Known Allergies Allergy Verified 10/31/23 10:29 [facility] Disclaimer: The information contained in this section may have been updated after the patient was seen, as this information can be updated by other users. Medical History Chronic idiopathic constipation Feeding by G-tube s/p TBI (traumatic brain injury) 2016/ Surgical History S/P emergency tracheotomy for assistance in breathing Family History Father Heart attack Mother FHx: mental illness Social History Smoking Status: Current every day smoker tobacco type: cigarettes packs per day: 1 second hand exposure: Yes alcohol intake: never substance use type: marijuana current occupational status: other Travel in the last 8 weeks: None household members: family ROS Obtained: Yes Systems reviewed as appropriate & no additional complaints except as documented Physical Exam General General appearance: alert and in no apparent distress ENT ENT exam: Present mucous membranes moist; Absent normal oropharynx (Patient has erythema and postnasal drip however the drainage is clear) Neck Neck exam: Present normal inspection, full ROM and lymphadenopathy Respiratory Respiratory exam: Present normal lung sounds bilaterally Cardiovascular Cardiovascular exam: Present regular rate, normal rhythm and +S2 Neurological Exam Neurological exam: Present alert and oriented X3 Medical Decision Making Medical Records Medical records reviewed: Yes I reviewed the patient's medical records. Mehran Inquiry Pt receiving controlled substance: No Vital Signs: 11/06/23 16:33 11/06/23 18:27 Temperature 98.4 F 98.1 F Temperature Source Oral Oral Pulse Rate 81 Pulse Rate [Right] 82 Respiratory Rate 18 18 Blood Pressure 131/77 Blood Pressure [Right Arm] 139/73 Blood Pressure Mean [Right Arm] 95 02 Sat by Pulse Oximetry 97 Oxygen Delivery Method Room Air Room Air Lab Data Lab results reviewed: Yes I reviewed the patient's lab results. Lab Results 11/06/23 16:38: Group A Strep Rapid Negative 11/06/23 16:41: SARS-CoV-2 (PCR) Not detected, Influenza A Untype (PCR) Not detected, Influenza Type B (PCR) Not detected Orders (Tests/Meds): ED MEDICATIONS Discontinued Medications Generic Name Dose Route Start Last Admin Trade Name Freq PRN Reason Stop Dose Admin Acetaminophen 1,000 mg 11/06/23 16:38 11/06/23 16:49 Acetaminophen 500mg Tab PO 11/06/23 16:39 1,000 mg ONCE ONE Administration Ibuprofen 800 mg 11/06/23 16:38 11/06/23 16:49 Ibuprofen 400 Mg Tablet PO 11/06/23 16:39 800 mg ONCE ONE Administration ORDERS Category Date Time Status Rapid PCR Covid and Flu A/B Stat Lab 11/06/23 16:41 Completed Strep Scrn Group A (Rapid) Stat Lab 11/06/23 16:38 Completed Strep Screen Confirmation Stat Micro 11/06/23 16:38 Received Medical Decision Narrative: In summary patient is a 23-year-old male who presents to the emergency department for evaluation of sore throat. Patient is dynamically stable upon arrival, afebrile. Physical exam is remarkable for erythematous posterior pha rynx without exudate and clear rhinorrhea. Patient states that he is chronically smoking and is actually utilizing his right multiple multiple times more than he would smoke.. Differential diagnosis includes viral or bacterial upper respiratory tract infection versus chemical irritant from excess vaping. Initial workup will be conducted with COVID flu and strep swabs. Initial interventions include Tylenol Motrin. Initial workup reviewed by me shows that his hematologic actionable. Upon repeat evaluation reported some moderate improvement in his symptoms. Given this patient is appropriate for discharge with instructions to minimize the frequency of his vaping and increase interval in between inhalations. Critical Care Critical Care Time Critical Care Time: No
[2023-11-06] MEDS: IBUPROFEN 400 MG TABLET 800 MG PO (16:49)
[2023-11-06] MEDS: ACETAMINOPHEN 500MG TAB 1000 MG PO (16:49)
[2023-11-06 16:51] LABS: Coronavirus 19, PCR Not Detected (NotDetected); Influenza A, PCR Not Detected (NotDetected); Influenza B, PCR Not Detected (NotDetected)
[2023-11-06 17:06] LABS: Strep Scrn Group A (Rapid) Negative (Negative)
[2023-11-06 18:27] VITALS: BP 131/77; PULSE 81; RESP 18; TEMP 36.7; O2SAT 96
== END 2023-11-06 18:32 | disposition home or self-care (01) ==
PROVIDERS: Physician Assistant; Emergency Provider Emergency Medicine; PCP Nurse Practitioner Family
DX: J02.9 Acute pharyngitis, unspecified (principal); F17.210 Nicotine dependence, cigarettes, uncomplicated
CPT/HCPCS: 87430; 87636; 99283

== ENCOUNTER 2024-01-27 17:00 | Emergency (ER) | payer MEDICAID, SELFPAY ==
[2024-01-27 17:02] VITALS: BP 95/61; PULSE 92; RESP 16; TEMP 36.8; O2SAT 97; BMI 23.4
--- NOTE | 2024-01-27 17:48 | ED_ITS ---
<Statement entered by Gennaro Caba MD - 01/27/24 18:52> I was consulted by the PRANAV, and we discussed the complexity of the problems being addressed. I approved the treatment and management plan for this patient's care in the emergency department, thus performing a substantive portion of the medical decision making. Gennaro Caba MD Discharge Plan Disposition Patient Disposition: Home, Self-Care Condition: Good Prescriptions Prescriptions: New krvnxeleteqskok-ymeuvykwk-SB [Bromfed DM] 2-30-10 mg/5 mL syrup 5 ml PO Q4H PRN (Reason: sinus symptoms) Qty: 118 0RF No Action olanzapine 5 mg tablet,disintegrating 5 mg PO DAILY aspirin 81 mg tablet,delayed release (DR/EC) 81 mg PO DAILY Linzess 145 mcg capsule 145 mcg PO DAILY Qty: 30 2RF propranolol 10 mg tablet 10 mg PO DAILY Referrals Follow up/Referrals: Provider,Referral, [Primary Care Provider] - See instructions Activity Restrictions/Add. Instructions Additional Instructions/Restrictions: I have called in medication to your pharmacy. Please take as needed. You may alternate every 4 hours with Tylenol and Motrin. Follow-up with your PCP if your symptoms do not resolve. Return to ER for any worsening signs or symptoms as needed Clinical Impressions Clinical Impression: Upper respiratory infection Instructions Patient Instructions: Common Cold Print Language Print Language: Swedish Discharge ED Provider: Gennaro Caba General Adult HPI General Chief complaint: Upper Respiratory Infection Stated complaint: Chest and sinus congestion Time Seen by Provider: 01/27/24 17:47 Mode of Arrival: Ambulatory Source of Information: Patient Limitations: No Limitations Description of Symptoms (Recalled from ER Triage Doc. by RN): congestion,runny nose History of Present Illness HPI narrative: Patient reports 24-hour history of cough congestion and thick mucus . He denies fever chills hemoptysis shortness of breath cough or chest pain. Related Data Home Medications ?Medication ?Instructions ?Recorded ?Confirmed propranolol 10 mg tablet 10 mg PO DAILY anxiety/pressure 10/30/22 01/22/24 aspirin 81 mg tablet,delayed 81 mg PO DAILY 08/27/23 01/22/24 release olanzapine 5 mg disintegrating 5 mg PO DAILY 08/27/23 01/22/24 tablet Previous Rx's ?Medication ?Instructions ?Recorded linaclotide 145 mcg capsule 145 mcg PO DAILY #30 caps 01/22/24 (Linzess) bomcakrhnrucopk-cxktjtcgzqqsxdu-UZ 5 ml PO Q4H PRN sinus symptoms 01/27/24 2 mg-30 mg-10 mg/5 mL oral syrup #118 mL (Bromfed DM) Allergies Allergy/AdvReac Type Severity Reaction Status Date / Time No Known Allergies Allergy Verified 01/22/24 08:40 [facility] Disclaimer: The information contained in this section may have been updated after the patient was seen, as this information can be updated by other users. Medical History Chronic idiopathic constipation Feeding by G-tube s/p TBI (traumatic brain injury) 2016/ Surgical History S/P emergency tracheotomy for assistance in breathing Family History Father Heart attack Mother FHx: mental illness Social History Smoking Status: Current every day smoker tobacco type: cigarettes packs per day: 1 second hand exposure: Yes alcohol intake: never substance use type: marijuana current occupational status: other Travel in the last 8 weeks: None household members: family ROS Obtained: Yes Systems reviewed as appropriate & no additional complaints except as documented Physical Exam General General appearance: alert and in no apparent distress Respiratory Respiratory exam: Present normal lung sounds bilaterally Cardiovascular Cardiovascular exam: Present regular rate Neurological Exam Neurological exam: Present alert and oriented X3 Lymphatic Lymphatic Findings: no adenopathy Medical Decision Making Mehran Inquiry Pt receiving controlled substance: No Vital Signs: 01/27/24 17:02 01/27/24 18:12 Temperature 98.3 F 98.0 F Temperature Source Oral Pulse Rate 92 H Pulse Rate [Right] 92 H Respiratory Rate 16 16 Blood Pressure 95/61 L Blood Pressure [Right Arm] 95/61 L Blood Pressure Mean [Right Arm] 72 02 Sat by Pulse Oximetry 97 Oxygen Delivery Method Room Air Medical Decision Narrative: In summary patient is a 23-year-old male who presents to the emergency department for evaluation of upper respiratory tract complaints. Patient is hemodynamically stable with a blood pressure 95/61 satting at 97% on room air respiratory rate of 16 with a pulse of 92 upon arrival, afebrile. Physical exam is remarkable for clear and equal breath sounds to the bases with adventitious sounds, boggy nasal mucosa with clear rhinorrhea, no cervical lymphadenopathy or any other focal physical findings. Differential diagnosis includes viral upper respiratory tract infection versus possible bacteria although the latter is less likely as patient has no clinical signs of bacterial infection. Initial workup was considered however given the patient's presentation and vital signs likely viral etiology no further workup is indicated for now. Given this I had a interactive discussion with the patient and via shared decision making he is agreeable to discharge with a prescription for Bromfed sent to his pharmacy. Patient given strict return precautions. Critical Care Critical Care Time Critical Care Time: No
[2024-01-27 18:12] VITALS: BP 95/61; PULSE 92; RESP 16; TEMP 36.7
== END 2024-01-27 18:13 | disposition home or self-care (01) ==
PROVIDERS: Emergency Provider Emergency Medicine
DX: R05.9 Cough, unspecified (principal); J06.9 Acute upper respiratory infection, unspecified; B34.9 Viral infection, unspecified
CPT/HCPCS: 99283

== ENCOUNTER 2024-02-22 19:46 | Emergency (ER) | payer MEDICAID, SELFPAY ==
[2024-02-22 19:48] VITALS: BP 124/71; PULSE 59; RESP 18; TEMP 36.7; O2SAT 97; BMI 23.6
[2024-02-22] MEDS: LORATADINE 10MG TABLET 10 MG PO (20:14)
--- NOTE | 2024-02-22 20:21 | HMH.EDGENADL ---
Discharge Plan Disposition Patient Disposition: Home, Self-Care Chief Complaint: Upper Respiratory Infection Prescriptions Prescriptions: No Action olanzapine 5 mg tablet,disintegrating 5 mg PO DAILY aspirin 81 mg tablet,delayed release (DR/EC) 81 mg PO DAILY linaclotide 290 mcg capsule 290 mcg PO DAILY Qty: 30 2RF propranolol 10 mg tablet 10 mg PO DAILY pkpsilulsgaaail-odyydphsk-XL [Bromfed DM] 2-30-10 mg/5 mL syrup 5 ml PO Q4H PRN (Reason: sinus symptoms) Qty: 118 0RF Referrals Follow up/Referrals: Bia Dasilva APRN [Primary Care Provider] - See instructions Activity Restrictions/Add. Instructions Additional Instructions/Restrictions: Call your family doctor to establish care for this visit to the emergency department and schedule follow-up within 48 hours to ensure improvement. If you have any worsening of your condition or any other concerning signs or symptoms, return to the emergency department or your primary care doctor for further evaluation. Daily Claritin or Zyrtec to help with symptoms. Clinical Impressions Clinical Impression: Congestion of upper airway, Sensation of fullness in left ear Print Language Print Language: [place] Discharge ED Provider: Neftali Renteria General Adult HPI General Chief complaint: Upper Respiratory Infection Stated complaint: Left earache,head congestion Time Seen by Provider: 02/22/24 19:52 Mode of Arrival: Wheelchair Source of Information: Patient Limitations: No Limitations Description of Symptoms (Recalled from ER Triage Doc. by RN): pt reports ear congestion, nose congestion and chest congestion that began today no other symptoms present. denies fever or recent illness History of Present Illness HPI narrative: Please note that above description of symptoms, in this electronic medical record under categorization of recalled from ER triage doctor by RN are reflective of an initial nursing assessment, however, is not reflective of my full history and physical exam that was personally taken and clarified. Consequentially, this preceding description of symptoms, which may include the patient's categorized chief complaint in the EMR, do not reflect my personal clinical impression, and the ultimate description of history of present illness and patient stated complaints should be deferred to this section of the note. Unless stated otherwise or congruent with this section of the note, additional signs, symptoms, or incongruence should be interpreted as inaccurate with my clinical impression. Related Data Home Medications ?Medication ?Instructions ?Recorded ?Confirmed propranolol 10 mg tablet 10 mg PO DAILY anxiety/pressure 10/30/22 02/18/24 aspirin 81 mg tablet,delayed 81 mg PO DAILY 08/27/23 02/18/24 release olanzapine 5 mg disintegrating 5 mg PO DAILY 08/27/23 02/18/24 tablet Previous Rx's ?Medication ?Instructions ?Recorded sbwywfbztqktayj-hpgczccgepxxxdl-QP 5 ml PO Q4H PRN sinus symptoms 01/27/24 2 mg-30 mg-10 mg/5 mL oral syrup #118 mL (Bromfed DM) linaclotide 290 mcg capsule 290 mcg PO DAILY #30 caps 02/18/24 Allergies Allergy/AdvReac Type Severity Reaction Status Date / Time No Known Allergies Allergy Verified 02/18/24 13:[address] [facility] Disclaimer: The information contained in this section may have been updated after the patient was seen, as this information can be updated by other users. Medical History Chronic idiopathic constipation Feeding by G-tube s/p TBI (traumatic brain injury) 2016/ Surgical History S/P emergency tracheotomy for assistance in breathing Family History Father Heart attack Mother FHx: mental illness Social History Smoking Status: Current every day smoker tobacco type: cigarettes packs per day: 1 second hand exposure: Yes alcohol intake: never substance use type: marijuana current occupational status: other Travel in the last 8 weeks: None household members: family Other Medical History Have you received the Flu Vaccine for this season: Yes Have you received the Pneumonia Vaccine: No ROS Obtained: Yes All systems reviewed & no additional complaints except as documented Physical Exam General General appearance: alert Head Head exam: atraumatic and normocephalic Eye Eye exam: Present normal appearance, PERRL and EOMI ENT ENT exam: Present TM's normal bilaterally, normal external ear exam and other (No evidence of tonsillitis, exudate, pharyngeal erythema, uvular deviation, palatal swelling, trismus, external neck swelling, submental induration, dental abscess, angioedema, or other abnormal char pharyngeal findings) Neck Neck exam: Present full ROM, trachea midline and other (previous trach site.) Respiratory Respiratory exam: Absent respiratory distress, wheezes, stridor, accessory muscle use or prolonged expiratory phase Cardiovascular Cardiovascular exam: Present other (Pulses equal symmetric in upper and lower extremities) Abdominal Exam Abdominal exam: Present soft; Absent distention, tenderness or pulsatile mass Extremities Exam Extremities exam: Absent edema Neurological Exam Neurological exam: Present alert, oriented X3 and CN II-XII intact; Absent motor sensory deficit Skin Skin exam: Present warm and dry; Absent diaphoresis or erythema Medical Decision Making Medical Records Medical records reviewed: Yes I reviewed the patient's medical records. Screening: Per USPSTF and CDC recommendations, given the prevalence of disease in our region, it is our hospital?s policy to screen for HIV and viral Hepatitis for all patients aged 18 and over and those with ongoing risk factors. Mehran Inquiry Pt receiving controlled substance: No Mehran was queried for this patient: No Vital Signs: 02/22/24 19:48 Temperature 98.1 F Temperature Source Oral Pulse Rate [Right] 59 L Respiratory Rate 18 Blood Pressure [Right Arm] 124/71 Blood Pressure Mean [Right Arm] 88 02 Sat by Pulse Oximetry 97 Oxygen Delivery Method Room Air Orders (Tests/Meds): ED MEDICATIONS Discontinued Medications Generic Name Dose Route Start Last Admin Trade Name Freq PRN Reason Stop Dose Admin Loratadine 10 mg 02/22/24 20:04 02/22/24 20:14 Loratadine 10mg Tablet PO 02/22/24 20:05 10 mg ONCE ONE Administration Medical Decision Narrative: 23-year-old male history of previous 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 Patient states this happened to him every year in February. States that he woke up today, 02/21 and felt like his throat was sore, as well as his left ear feeling full. No fevers, chills, nausea, vomiting, difficulty swallowing, difficulty breathing, pain with range of motion of neck, or any other concerning or relevant history. Has not taken anything for the discomfort. History obtained with patient. On arrival, very well-appearing. No stridor, full range of motion of neck, conversational, no evidence of tonsillitis, exudate, pharyngeal erythema, uvular deviation, palatal swelling, trismus, external neck swelling, submental induration, dental abscess, angioedema, or other abnormal char pharyngeal findings. Bilateral external auditory canals and tympanic membranes within normal limits. Differential includes allergies, eustachian tube dysfunction, among others. Patient was given Claritin. Because patient at baseline without signs or symptoms of clinical decompensation, deemed appropriate for discharge. I discussed my clinical impression with patient[] and answered all questions. At this time, the evidence for any other entities in the differential is insufficient to warrant any further testing or ED observation. This was explained as well. Advisory was given that persistent or worsening symptoms require further evaluation. I confirmed the understanding of this discussion. Sleeve Tailor disclaimer Much of this encounter note is an electronic administrative analyst spoken language to printed text. Electronic administrative analyst of the spoken language may permit errors. Although I have reviewed the note, some errors may still exist. Critical Care Critical Care Time Critical Care Time: No
[2024-02-22 20:23] VITALS: BP 124/71; PULSE 72; RESP 18; TEMP 36.8; O2SAT 98
== END 2024-02-22 20:42 | disposition home or self-care (01) ==
PROVIDERS: Emergency Provider Emergency Medicine; PCP Nurse Practitioner Family
DX: H92.02 Otalgia, left ear (principal); R09.81 Nasal congestion; R09.89 Other specified symptoms and signs involving the circulatory and respiratory systems; H93.8X2 Other specified disorders of left ear; J98.8 Other specified respiratory disorders; F17.200 Nicotine dependence, unspecified, uncomplicated
CPT/HCPCS: 99282

== ENCOUNTER 2024-07-31 17:28 | Emergency (ER) | payer MEDICAID, SELFPAY ==
--- NOTE | 2024-07-31 17:44 | HMH.EDGENADL ---
Discharge Plan Disposition Patient Disposition: Home, Self-Care Prescriptions Prescriptions: New chlorhexidine gluconate [Peridex] 0.12 % mouthwash 15 ml buccal BID Qty: 750 0RF No Action linaclotide 145 mcg capsule 145 mcg PO DAILY 30 Days Qty: 30 6RF olanzapine 5 mg tablet 5 mg PO DAILY hydrocodone-acetaminophen 5-325 mg tablet 1 tab PO Q6HP PRN (Reason: Pain (Scale Score 4-6)) Referrals Follow up/Referrals: Bia Dasilva APRN [Primary Care Provider] - See instructions Activity Restrictions/Add. Instructions Additional Instructions/Restrictions: Dex rinse 2-3 times daily. You can also do warm salt water rinses gently. occupational therapy specialist your other pain meds at [facility], however your best bet will be to stick with Tylenol and Motrin because these will help with the inflammatory pain. Take Tylenol 1000 mg every 6 hours (4 times daily) and ibuprofen 400 mg every 6 hours (4 times daily) as needed with food and water to prevent GI upset and kidney damage. Call your dentist back to establish care for this visit to the emergency department and schedule follow-up within 48 hours to ensure improvement. If you have any worsening of your condition or any other concerning signs or symptoms, return to the emergency department or your dentist for further evaluation. Clinical Impressions Clinical Impression: Pain, dental Print Language Print Language: Swedish Discharge ED Provider: Neftali Renteria General Adult HPI General Chief complaint: Dental/Oral Stated complaint: dental pain Time Seen by Provider: 07/31/24 17:32 History of Present Illness HPI narrative: Please note that above description of symptoms, in this electronic medical record under categorization of recalled from ER triage doctor by RN are reflective of an initial nursing assessment, however, is not reflective of my full history and physical exam that was personally taken and clarified. Consequentially, this preceding description of symptoms, which may include the patient's categorized chief complaint in the EMR, do not reflect my personal clinical impression, and the ultimate description of history of present illness and patient stated complaints should be deferred to this section of the note. Unless stated otherwise or congruent with this section of the note, additional signs, symptoms, or incongruence should be interpreted as inaccurate with my clinical impression. Related Data Home Medications ?Medication ?Instructions ?Recorded ?Confirmed olanzapine 5 mg tablet 5 mg PO DAILY 06/13/24 07/31/24 hydrocodone 5 mg-acetaminophen 325 1 tab PO Q6HP PRN Pain (Scale 07/31/24 07/31/24 mg tablet Score 4-6) Previous Rx's ?Medication ?Instructions ?Recorded linaclotide 145 mcg capsule 145 mcg PO DAILY 30 days #30 caps 06/17/24 chlorhexidine gluconate 0.12 % 15 ml buccal BID #750 mL 07/31/24 mouthwash (Peridex) Allergies Allergy/AdvReac Type Severity Reaction Status Date / Time No Known Allergies Allergy Verified 07/25/24 13:35 [facility] Disclaimer: The information contained in this section may have been updated after the patient was seen, as this information can be updated by other users. Medical History Chronic idiopathic constipation Feeding by G-tube s/p TBI (traumatic brain injury) 2016/ Surgical History S/P emergency tracheotomy for assistance in breathing Family History Father Heart attack Mother FHx: mental illness Social History Smoking Status: Current every day smoker tobacco type: cigarettes packs per day: 1 second hand exposure: Yes alcohol intake: never substance use type: marijuana current occupational status: other Travel in the last 8 weeks: None household members: family Have you lived/traveled outside [place] in past 30 days?: No Contact w/someone who lives/traveled outside [place] past 30 days?: No Exposure to someone with infectious disease in past 14 days?: No Do you have a fever (greater than 100.4 F or 38 C)?: No Have you tested positive for COVID-19: No Exposed to someone with COVID-19 in past 14 days?: No Do you have a sore throat?: No Do you have a cough?: No Do you have any weakness?: No Do you have any diarrhea?: No Are you experiencing any unusual bleeding?: No Do you have any muscle aches/pain?: No Do you have any abdominal pain?: No Are you experiencing loss of taste or smell?: No Other Medical History Have you received the Flu Vaccine for this season: Yes Have you received the Pneumonia Vaccine: No ROS Obtained: Yes All systems reviewed & no additional complaints except as documented Physical Exam General General appearance: alert and appears intoxicated Head Head exam: atraumatic and normocephalic Eye Eye exam: Present PERRL, EOMI and conjunctival redness ENT ENT exam: Present other (Recently debrided socket at tooth 15. Very well-appearing postoperatively. No active bleeding. No evidence of tonsillitis, exudate, pharyngeal erythema, uvular deviation, palatal swelling, trismus, external neck swelling, submental induration, dental abscess, angioedema, or other abnormal char pha) Neck Neck exam: Present normal inspection, full ROM and trachea midline Respiratory Respiratory exam: Absent respiratory distress, wheezes, stridor, accessory muscle use or prolonged expiratory phase Cardiovascular Cardiovascular exam: Present other (Pulses equal symmetric in upper and lower extremities) Abdominal Exam Abdominal exam: Present soft; Absent distention, tenderness or pulsatile mass Extremities Exam Extremities exam: Absent edema Neurological Exam Neurological exam: Present alert, oriented X3 and CN II-XII intact; Absent motor sensory deficit Skin Skin exam: Present warm and dry; Absent diaphoresis or erythema Medical Decision Making Medical Records Medical records reviewed: Yes I reviewed the patient's medical records. Screening: Per USPSTF and CDC recommendations, given the prevalence of disease in our region, it is our hospital?s policy to screen for HIV and viral Hepatitis for all patients aged 18 and over and those with ongoing risk factors. Mehran Inquiry Pt receiving controlled substance: No Mehran was queried for this patient: No Vital Signs: 07/31/24 17:45 Temperature 98.2 F Temperature Source Oral Pulse Rate [Right] 88 Respiratory Rate 16 Blood Pressure [Right Arm] 110/70 Blood Pressure Mean [Right Arm] 83 Blood Pressure Source [Right Arm] Automatic Cuff 02 Sat by Pulse Oximetry 98 Oxygen Delivery Method Room Air Orders (Tests/Meds): ED MEDICATIONS Discontinued Medications Generic Name Dose Route Start Last Admin Trade Name Freq PRN Reason Stop Dose Admin Lidocaine HCl 15 ml 07/31/24 17:46 Lidocaine 2% Viscous Zahra 15ml Udc PO 07/31/24 17:47 ONCE ONE Medical Decision Narrative: 24-year-old male presenting with dental pain after extraction. He states that he got the tooth extracted about 4 hours prior to the visit to the emergency department. Has not picked up his pain meds. Not actively bleeding, but still having pain, came in for further evaluation. History was obtained via conversation with patient. On arrival, patient hemodynamically stable, alert, oriented x4, appropriate, GCS 15, moving all extremities spontaneously, pupils equal and reactive to light. Full physical exam performed and significant for he is very obviously intoxicated with bilateral conjunctival injection, interacting slowly, speaking slowly. Interacting and responding appropriately. Patient states that he has not picked up his meds at the pharmacy just yet, so low concern for accidental opiate overdose as he is alert and oriented. Has hemostatic socket at the base of tooth 15 that appears very well. No evidence of tonsillitis, exudate, pharyngeal erythema, uvular deviation, palatal swelling, trismus, external neck swelling, submental induration, dental abscess, angioedema, or other abnormal char pharyngeal findings. Differential includes postoperative pain, among others. Because patient clinically well-appearing with no signs or symptoms of decompensation and very appropriate postsurgical site, dental balls were administered. Peridex sent to the pharmacy and was recommended that he do Peridex rinses, follow-up with his dentist. He voiced his understanding. Because patient at baseline without signs or symptoms of clinical decompensation, deemed appropriate for discharge.I discussed my clinical impression with patient and answered all questions. At this time, the evidence for any other entities in the differential is insufficient to warrant any further testing or ED observation. This was explained as well. Advisory was given that persistent or worsening symptoms require further evaluation. I confirmed the understanding of this discussion. Tube Teller disclaimer Much of this encounter note is an electronic motor vehicle salesperson spoken language to printed text. Electronic motor vehicle salesperson of the spoken language may permit errors. Although I have reviewed the note, some errors may still exist. Critical Care Critical Care Time Critical Care Time: No
[2024-07-31 17:45] VITALS: BP 110/70; PULSE 88; RESP 16; TEMP 36.8; O2SAT 98; BMI 24.8
[2024-07-31] MEDS: TETRACAINE/BENZOCAINE/BUTAMBEN 56 GM SPRAY TP (17:58)
[2024-07-31] MEDS: LIDOCAINE 2% VISCOUS SOL 15ML UDC 15 ML PO (17:58)
[2024-07-31 18:00] VITALS: BP 112/70; PULSE 80; RESP 16; TEMP 36.7; O2SAT 98
== END 2024-07-31 18:08 | disposition home or self-care (01) ==
PROVIDERS: Emergency Provider Emergency Medicine; PCP Nurse Practitioner Family
DX: K08.89 Other specified disorders of teeth and supporting structures (principal); F17.210 Nicotine dependence, cigarettes, uncomplicated
CPT/HCPCS: 99283

== ENCOUNTER 2024-08-04 19:49 | Emergency (ER) | payer MEDICAID, SELFPAY ==
[2024-08-04 19:53] VITALS: BP 141/79; PULSE 80; RESP 18; TEMP 36.6; O2SAT 96; BMI 25.5
[2024-08-04 20:54] VITALS: BP 131/90; PULSE 66; O2SAT 99
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
[2024-08-04] MEDS: TETRACAINE/BENZOCAINE/BUTAMBEN 56 GM SPRAY TP (21:22)
[2024-08-04] MEDS: LIDOCAINE 2% VISCOUS SOL 15ML UDC 15 ML PO (21:22)
[2024-08-04] MEDS: ACETAMINOPHEN 500MG TAB 500 MG PO (21:24)
[2024-08-04] MEDS: IBUPROFEN 600 MG TABLET PO (21:24)
[2024-08-04 21:43] VITALS: BP 131/90; PULSE 68; RESP 18; TEMP 36.7; O2SAT 98
== END 2024-08-04 21:47 | disposition home or self-care (01) ==
PROVIDERS: Emergency Provider Emergency Medicine; PCP Nurse Practitioner Family
DX: K08.89 Other specified disorders of teeth and supporting structures (principal)
CPT/HCPCS: 99283

== ENCOUNTER 2024-08-09 18:08 | Emergency (ER) | payer MEDICAID, SELFPAY ==
[2024-08-09 18:15] VITALS: BP 113/62; PULSE 74; RESP 18; TEMP 36.7; O2SAT 95; BMI 25.5
--- NOTE | 2024-08-09 18:30 | ED_ITS ---
Discharge Plan Disposition Patient Disposition: Home, Self-Care Prescriptions Prescriptions: No Action linaclotide 145 mcg capsule 145 mcg PO DAILY 30 Days Qty: 30 6RF olanzapine 5 mg tablet 5 mg PO DAILY hydrocodone-acetaminophen 5-325 mg tablet 1 tab PO Q6HP PRN (Reason: Pain (Scale Score 4-6)) chlorhexidine gluconate [Peridex] 0.12 % mouthwash 15 ml buccal BID Qty: 750 0RF amoxicillin-pot clavulanate 875-125 mg tablet 1 tab PO BID 7 Days Qty: 14 0RF Referrals Follow up/Referrals: Bia Dasilva APRN [Primary Care Provider] - See instructions Activity Restrictions/Add. Instructions Additional Instructions/Restrictions: Continue home medications for constipation. Follow-up with your primary care doctor. Please return the emerged part with any new, concerning, worsening symptoms. Clinical Impressions Clinical Impression: Constipation Instructions Patient Instructions: DI for Acute Abdominal Pain Print Language Print Language: Ukrainian Discharge ED Provider: Edgar Gomez General Adult HPI General Chief complaint: Abdominal Pain Stated complaint: Upset stomach,pain Time Seen by Provider: 08/09/24 18:16 Mode of Arrival: Ambulatory Source of Information: Patient Description of Symptoms (Recalled from ER Triage Doc. by RN): pt reports constipation. states he has had a bowel movement daily including this morning. takes meds @ home for constipation. History of Present Illness HPI narrative: This is a 24-year-old male is very well-known to our emergency department for fr equent visits. Has a history of chronic constipation. Presents with concern for constipation. Has been having daily bowel movements including this morning. Takes Linzess for constipation at home. States that he is passing gas and tolerating oral intake without difficulty. Reports mild abdominal pain. Related Data Home Medications ?Medication ?Instructions ?Recorded ?Confirmed olanzapine 5 mg tablet 5 mg PO DAILY 06/13/24 07/31/24 hydrocodone 5 mg-acetaminophen 325 1 tab PO Q6HP PRN Pain (Scale 07/31/24 07/31/24 mg tablet Score 4-6) Previous Rx's ?Medication ?Instructions ?Recorded linaclotide 145 mcg capsule 145 mcg PO DAILY 30 days #30 caps 06/17/24 chlorhexidine gluconate 0.12 % 15 ml buccal BID #750 mL 07/31/24 mouthwash (Peridex) amoxicillin 875 mg-potassium 1 tab PO BID 7 days #14 tabs 08/04/24 clavulanate 125 mg tablet Allergies Allergy/AdvReac Type Severity Reaction Status Date / Time No Known Allergies Allergy Verified 07/25/24 13:35 [facility] Disclaimer: The information contained in this section may have been updated after the patient was seen, as this information can be updated by other users. Medical History Chronic idiopathic constipation Feeding by G-tube s/p TBI (traumatic brain injury) 2016/ Surgical History S/P emergency tracheotomy for assistance in breathing Family History Father Heart attack Mother FHx: mental illness Social History Smoking Status: Current every day smoker tobacco type: cigarettes packs per day: 1 second hand exposure: Yes alcohol intake: never substance use type: marijuana current occupational status: other Travel in the last 8 weeks: None household members: family Have you lived/traveled outside US in past 30 days?: No Contact w/someone who lives/traveled outside US past 30 days?: No Exposure to someone with infectious disease in past 14 days?: No Do you have a fever (greater than 100.4 F or 38 C)?: No Have you tested positive for COVID-19: No Exposed to someone with COVID-19 in past 14 days?: No Do you have a sore throat?: No Do you have a cough?: No Do you have any weakness?: No Do you have any diarrhea?: No Are you experiencing any unusual bleeding?: No Do you have any muscle aches/pain?: Yes Do you have any abdominal pain?: Yes Are you experiencing loss of taste or smell?: No Other Medical History Have you received the Flu Vaccine for this season: Yes Have you received the Pneumonia Vaccine: No ROS Obtained: Yes All systems reviewed & no additional complaints except as documented Physical Exam General General appearance: alert and in no apparent distress Eye Eye exam: Present normal appearance, PERRL and EOMI Respiratory Respiratory exam: Present normal lung sounds bilaterally; Absent respiratory distress Cardiovascular Cardiovascular exam: Present regular rate and normal rhythm Abdominal Exam Abdominal exam: Present soft and distention; Absent tenderness, guarding or rebound Extremities Exam Extremities exam: Present normal inspection Neurological Exam Neurological exam: Present alert and oriented X3 Skin Skin exam: Present warm and dry Medical Decision Making Medical Records Medical records reviewed: Yes I reviewed the patient's medical records. Screening: Per USPSTF and CDC recommendations, given the prevalence of disease in our region, it is our hospital?s policy to screen for HIV and viral Hepatitis for all patients aged 18 and over and those with ongoing risk factors. MR Comment: Frequent emergency department visits for various complaints including for dental pain on 07/31/2024 and 07/31/2024. Mehran Inquiry Pt receiving controlled substance: No Vital Signs: 08/09/24 18:15 Temperature 98.1 F Temperature Source Oral Pulse Rate [Right] 74 Respiratory Rate 18 Blood Pressure [Right Arm] 113/62 Blood Pressure Mean [Right Arm] 79 02 Sat by Pulse Oximetry 95 Oxygen Delivery Method Room Air Medical Decision Narrative: This is a 24-year-old male with a history of a TBI well-known to Emergency Department with a history of chronic constipation presenting with concern for constipation. On arrival, he was afebrile, hemodynamically stable, nontoxic- appearing. Soft, nontender, benign abdominal exam. Differential diagnosis includes but is not limited to constipation, bowel obstruction, rectal stool ball. Had been having daily bowel movements with a reassuring abdominal exam. No clinical features concerning for obstruction. Was asking for a specific nurse by name for an enema which he had a history of doing. Given that he was already having daily bowel movements with his last movement this morning, discussed that this was not indicated at this time. Discharged in stable condition. Critical Care Critical Care Time Critical Care Time: No
[2024-08-09 18:39] VITALS: BP 130/89; PULSE 90; RESP 16; TEMP 36.6
== END 2024-08-09 18:39 | disposition home or self-care (01) ==
PROVIDERS: Emergency Provider Student in an Organized Health Care Education/Training Program; PCP Nurse Practitioner Family
DX: K59.04 Chronic idiopathic constipation (principal); R11.0 Nausea; R10.9 Unspecified abdominal pain; F17.210 Nicotine dependence, cigarettes, uncomplicated; Z87.820 Personal history of traumatic brain injury; F12.90 Cannabis use, unspecified, uncomplicated; Z82.49 Family history of ischemic heart disease and other diseases of the circulatory system; Z81.8 Family history of other mental and behavioral disorders
CPT/HCPCS: 99281

== ENCOUNTER 2024-08-12 22:24 | Emergency (ER) | payer MEDICAID, SELFPAY ==
[2024-08-12 22:26] VITALS: BP 134/83; PULSE 59; RESP 18; TEMP 36.7; O2SAT 99; BMI 26.6
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
[2024-08-12] MEDS: AMOXICILLIN/CLAVULANATE POTASSIUM 875/125MG TABLET 1 EACH PO (23:42)
[2024-08-12 23:47] VITALS: BP 128/82; PULSE 80; RESP 17; TEMP 36.7; O2SAT 100
== END 2024-08-12 23:48 | disposition home or self-care (01) ==
PROVIDERS: Emergency Provider Emergency Medicine
DX: K04.7 Periapical abscess without sinus (principal)
CPT/HCPCS: 99283

== ENCOUNTER 2024-09-20 22:52 | Emergency (ER) | payer MEDICAID, SELFPAY ==
--- NOTE | 2024-09-20 23:03 | ED_ITS ---
Discharge Plan Disposition Patient Disposition: Home, Self-Care Prescriptions Prescriptions: No Action Linzess 145 mcg capsule 145 mcg PO DAILY Qty: 30 2RF acetaminophen 500 mg capsule 1,000 mg PO Q6H PRN (Reason: pain) Qty: 90 0RF ibuprofen 200 mg tablet 600 mg PO Q6H PRN (Reason: pain) Qty: 90 0RF Referrals Follow up/Referrals: Bia Dsailva APRN [Primary Care Provider] - See instructions Activity Restrictions/Add. Instructions Additional Instructions/Restrictions: Please use the enema as needed. Recommend doing a bowel cleanout with MiraLAX. Use up to 10 capfuls in a large amount of water. Wait several hours and repeat if not successful. The goal is to have watery stools. After he started having watery stools, you only need to use small doses of MiraLAX to maintain daily bowel movements. Clinical Impressions Clinical Impression: Constipation, Abdominal pain Instructions Patient Instructions: DI for Acute Abdominal Pain Print Language Print Language: Albanian Discharge ED Provider: Josesito Roy General Adult HPI General Chief complaint: Abdominal Pain Stated complaint: Stomach Pain Time Seen by Provider: 09/20/24 22:58 History of Present Illness HPI narrative: 24-year-old male with history of traumatic brain injury presents for constipation. He reports he has not had a bowel movement in 2 or 3 days and has some right-sided abdominal pain. He reports he has experienced this in the past. He denies any fever chills or generalized symptoms. He is on Linzess but has not used any enemas or MiraLAX recently. Denies history of abdominal surgery. Related Data Previous Rx's ?Medication ?Instructions ?Recorded acetaminophen 500 mg capsule 1,000 mg (2 x 500 mg) PO Q6H PRN 08/13/24 pain #90 caps ibuprofen 200 mg tablet 600 mg (3 x 200 mg) PO Q6H PRN 08/13/24 pain #90 tabs linaclotide 145 mcg capsule 145 mcg PO DAILY #30 caps 09/16/24 (Linzess) Allergies Allergy/AdvReac Type Severity Reaction Status Date / Time No Known Allergies Allergy Verified 08/22/24 14:35 [facility] Disclaimer: The information contained in this section may have been updated after the patient was seen, as this information can be updated by other users. Medical History Chronic idiopathic constipation Feeding by G-tube s/p TBI (traumatic brain injury) 2016/ Surgical History S/P emergency tracheotomy for assistance in breathing Family History Father Heart attack Mother FHx: mental illness Social History Smoking Status: Current some day smoker tobacco type: cigarettes packs per day: 1 second hand exposure: Yes alcohol intake: never substance use type: marijuana current occupational status: other Travel in the last 8 weeks?: None household members: family Have you lived/traveled outside US in past 30 days?: No Contact w/someone who lives/traveled outside US past 30 days?: No Exposure to someone with infectious disease in past 14 days?: No Do you have a fever (greater than 100.4 F or 38 C)?: No Have you tested positive for COVID-19?: No Exposed to someone with COVID-19 in past 14 days?: No Do you have a sore throat?: No Do you have a cough?: No Do you have any weakness?: No Do you have any diarrhea?: No Are you experiencing any unusual bleeding?: No Do you have any muscle aches/pain?: No Do you have any abdominal pain?: Yes Are you experiencing loss of taste or smell?: No Other Medical History Have you received the Flu Vaccine for this season: Yes Have you received the Pneumonia Vaccine: No ROS Obtained: Yes All systems reviewed & no additional complaints except as documented Physical Exam General General appearance: alert and in no apparent distress Head Head exam: atraumatic and normocephalic Eye Eye exam: Present normal appearance, PERRL and EOMI ENT ENT exam: Present normal oropharynx and normal external ear exam Neck Neck exam: Present normal inspection and full ROM Chest Chest inspection: Present normal inspection and symmetric chest wall rise; Absent tenderness Respiratory Respiratory exam: Present normal lung sounds bilaterally; Absent respiratory di stress Cardiovascular Cardiovascular exam: Present regular rate and normal rhythm Abdominal Exam Abdominal exam: Present soft; Absent distention, tenderness or guarding Extremities Exam Extremities exam: Present normal inspection; Absent edema or joint swelling Back Exam Back exam: Present normal inspection; Absent tenderness Neurological Exam Neurological exam: Present alert and oriented X3; Absent motor sensory deficit Psychiatric Psychiatric exam: Present normal affect and normal mood Skin Skin exam: Present warm, dry and normal color Lymphatic Lymphatic Findings: no adenopathy Medical Decision Making Medical Records Medical records reviewed: Yes I reviewed the patient's medical records. Screening: Per USPSTF and CDC recommendations, given the prevalence of disease in our region, it is our hospital?s policy to screen for HIV and viral Hepatitis for all patients aged 18 and over and those with ongoing risk factors. Mehran Inquiry Pt receiving controlled substance: No Mehran was queried for this patient: No Vital Signs: 09/20/24 23:06 09/20/24 23:48 Temperature 98.2 F 98 F Temperature Source Oral Pulse Rate 68 Pulse Rate [Radial] 71 Respiratory Rate 16 16 Blood Pressure 121/65 Blood Pressure [Right Arm] 123/76 Blood Pressure Mean [Right Arm] 91 02 Sat by Pulse Oximetry 98 Oxygen Delivery Method Room Air Room Air Lab Data Lab results reviewed: Yes I reviewed the patient's lab results. Orders (Tests/Meds): ED MEDICATIONS Discontinued Medications Generic Name Dose Route Start Last Admin Trade Name Freq PRN Reason Stop Dose Admin Sodium Phosphate 133 ml 09/20/24 23:40 09/20/24 23:48 Sodium Phos/Biphosphate Fleet 133ml Enema RC 09/20/24 23:41 133 ml ONCE ONE Administration ORDERS Category Date Time Status KUB (single view) [XR KUB] Stat Exams 09/20/24 23:12 Completed Medical Decision Narrative: 24-year-old male with history of traumatic brain injury presents for constipation and abdominal pain. History was obtained via interactive discussion with patient, chart review. On arrival, patient is [afebrile, hemodynamically stable, satting appropriately, alert, oriented x4, GCS 15], moving all extremities spontaneously. Full physical exam performed and significant for no significant abdominal tenderness on exam Differential includes but is not limited to constipation, appendicitis, cholecystitis, gastritis. No significant concern for emergent pathology at this time based on benign abdominal exam and vital signs KUB was ordered which on my independent interpretation does show moderate to significant right-sided stool burden consistent with patient's location of discomfort. I had an interactive discussion with patient regarding presentation and workup. Recommended he do enema at home as well as MiraLAX bowel cleanout. Patient was discharged in stable condition with return precautions. Procedures Risk/Benefits of Procedure(s) Were Explained: Yes Critical Care Critical Care Time Critical Care Time: No
[2024-09-20 23:06] VITALS: BP 123/76; PULSE 71; RESP 16; TEMP 36.8; O2SAT 98; BMI 25.5
--- NOTE | 2024-09-20 23:12 | XR_ITS ---
PROCEDURE INFORMATION: Exam: XR Abdomen Exam date and time: 09/20/2024 11:14 PM Age: 24 years old Clinical indication: Constipation; Abdominal pain; Additional info: Abd pain, constipation TECHNIQUE: Imaging protocol: Radiologic exam of the abdomen. Views: Frontal supine view of the abdomen. 1 View. COMPARISON: CR XR ABDOMEN MIN 2V 09/10/2023 2:18 PM FINDINGS: Gastrointestinal tract: [id number] colonic stool burden. Nonobstructive pattern. Bones/joints: Unremarkable. IMPRESSION: [id number] colonic stool burden.
[2024-09-20 23:48] VITALS: BP 121/65; PULSE 68; RESP 16; TEMP 36.6; O2SAT 95
[2024-09-20] MEDS: SODIUM PHOS/BIPHOSPHATE FLEET 133ML ENEMA 133 ML RC (23:48)
== END 2024-09-20 23:53 | disposition home or self-care (01) ==
PROVIDERS: Emergency Provider Emergency Medicine; PCP Nurse Practitioner Family
DX: R10.9 Unspecified abdominal pain (principal); K59.00 Constipation, unspecified
CPT/HCPCS: 74018; 99283

== ENCOUNTER 2024-09-23 02:19 | Emergency (ER) | payer MEDICAID, SELFPAY ==
[2024-09-23 02:26] VITALS: BP 129/70; PULSE 62; RESP 18; TEMP 36.9; O2SAT 97; BMI 25.5
--- NOTE | 2024-09-23 02:29 | CT_ITS ---
PROCEDURE INFORMATION: Exam: CT Abdomen And Pelvis With Contrast Exam date and time: 09/23/2024 3:06 AM Age: 24 years old Clinical indication: Abdominal pain; Additional info: Lower abd pain TECHNIQUE: Imaging protocol: Computed tomography of the abdomen and pelvis with contrast. Radiation optimization: All CT scans at this facility use at least one of these dose optimization techniques: automated exposure control; mA and/or kV adjustment per patient size (includes targeted exams where dose is matched to clinical indication); or iterative reconstruction. Contrast material: ISOVUE; Contrast volume: 75 ml; Contrast route: IV; COMPARISON: CR XR KUB 09/20/2024 11:14 PM FINDINGS: Lungs: No acute finding. Liver: Normal. No mass. Gallbladder and biliary ducts: Normal. No calcified stones. No ductal dilation. Pancreas: Normal. No ductal dilation. Spleen: Normal. No splenomegaly. Adrenal glands: Normal. No mass. Kidneys and ureters: Normal. No hydronephrosis. Stomach and bowel: Unremarkable. No obstruction. No mucosal thickening. Appendix: No evidence of appendicitis. Intraperitoneal space: Fluid-filled colon raising suspicion for diarrheal illness.. No free air. No significant fluid collection. Vasculature: Unremarkable. No abdominal aortic aneurysm. Lymph nodes: Unremarkable. No enlarged lymph nodes. Urinary bladder: Unremarkable as visualized. Reproductive: Unremarkable as visualized. Bones/joints: Unremarkable. No acute fracture. Soft tissues: There is a very small fat containing left inguinal hernia. IMPRESSION: 1. No acute findings. 2. Fluid-filled colon raising the suspicion for diarrheal illness.
--- NOTE | 2024-09-23 02:43 | ED_ITS ---
Discharge Plan Disposition Patient Disposition: Home, Self-Care Prescriptions Prescriptions: No Action Linzess 145 mcg capsule 145 mcg PO DAILY Qty: 30 2RF acetaminophen 500 mg capsule 1,000 mg PO Q6H PRN (Reason: pain) Qty: 90 0RF ibuprofen 200 mg tablet 600 mg PO Q6H PRN (Reason: pain) Qty: 90 0RF Referrals Follow up/Referrals: Bia Dasilva APRN [Primary Care Provider] - See instructions Activity Restrictions/Add. Instructions Additional Instructions/Restrictions: Please discontinue the MiraLAX. Please follow-up with your primary care provider. Please return to the emergency department if you develop any new or worsening symptoms or become concerned for your health. Clinical Impressions Clinical Impression: Watery stools Abdominal pain Qualifiers: Abdominal location: lower abdomen, unspecified Qualified Code(s): R10.30 - Lower abdominal pain, unspecified Instructions Patient Instructions: DI for Acute Abdominal Pain Print Language Print Language: Sinhala Discharge ED Provider: Josesito Roy Adult HPI General Chief complaint: Abdominal Pain Stated complaint: abd pain Time Seen by Provider: 09/23/24 02:20 Mode of Arrival: Ambulatory Source of Information: Patient Description of Symptoms (Recalled from ER Triage Doc. by RN): c/o lower abdominal pain. was seen here for the same a few days ago and did not do what the doctor recommended for constipation. History of Present Illness HPI narrative: 24-year-old male with history of TBI and chronic constipation presents for lower abdominal pain. He was seen here couple days ago and had a KUB which showed some right-sided constipation consistent with the patient's pain. He was discharged with instructions to do enema and MiraLAX. He did the MiraLAX and has been having watery stools, but his abdominal pain is continuing. Denies urinary symptoms. Related Data Previous Rx's ?Medication ?Instructions ?Recorded acetaminophen 500 mg capsule 1,000 mg (2 x 500 mg) PO Q6H PRN 08/13/24 pain #90 caps ibuprofen 200 mg tablet 600 mg (3 x 200 mg) PO Q6H PRN 08/13/24 pain #90 tabs linaclotide 145 mcg capsule 145 mcg PO DAILY #30 caps 09/16/24 (Linzess) Allergies Allergy/AdvReac Type Severity Reaction Status Date / Time No Known Allergies Allergy Verified 08/22/24 14:35 PFSH PFSH Disclaimer: The information contained in this section may have been updated after the patient was seen, as this information can be updated by other users. Medical History Chronic idiopathic constipation Feeding by G-tube s/p TBI (traumatic brain injury) 2016/ Surgical History S/P emergency tracheotomy for assistance in breathing Family History Father Heart attack Mother FHx: mental illness Social History Smoking Status: Current some day smoker tobacco type: cigarettes packs per day: 1 second hand exposure: Yes alcohol intake: never substance use type: marijuana current occupational status: other Travel in the last 8 weeks?: None household members: family Have you lived/traveled outside US in past 30 days?: No Contact w/someone who lives/traveled outside US past 30 days?: No Exposure to someone with infectious disease in past 14 days?: No Do you have a fever (greater than 100.4 F or 38 C)?: No Have you tested positive for COVID-19?: No Exposed to someone with COVID-19 in past 14 days?: No Do you have a sore throat?: No Do you have a cough?: No Do you have any weakness?: No Do you have any diarrhea?: No Are you experiencing any unusual bleeding?: No Do you have any muscle aches/pain?: No Do you have any abdominal pain?: Yes Are you experiencing loss of taste or smell?: No Other Medical History Have you received the Flu Vaccine for this season: Yes Have you received the Pneumonia Vaccine: No ROS Obtained: Yes All systems reviewed & no additional complaints except as documented Physical Exam General General appearance: alert and in no apparent distress Head Head exam: atraumatic and normocephalic Eye Eye exam: Present normal appearance, PERRL and EOMI ENT ENT exam: Present normal oropharynx and normal external ear exam Neck Neck exam: Present normal inspection and full ROM Chest Chest inspection: Present normal inspection and symmetric chest wall rise; Absent tenderness Respiratory Respiratory exam: Present normal lung sounds bilaterally; Absent respiratory distress Cardiovascular Cardiovascular exam: Present regular rate and normal rhythm Abdominal Exam Abdominal exam: Present soft; Absent distention, tenderness or guarding Extremities Exam Extremities exam: Present normal inspection; Absent edema or joint swelling Back Exam Back exam: Present normal inspection; Absent tenderness Neurological Exam Neurological exam: Present alert and oriented X3; Absent motor sensory deficit Psychiatric Psychiatric exam: Present normal affect and normal mood Skin Skin exam: Present warm, dry and normal color Lymphatic Lymphatic Findings: no adenopathy Medical Decision Making Medical Records Medical records reviewed: Yes I reviewed the patient's medical records. Screening: Per USPSTF and CDC recommendations, given the prevalence of disease in our region, it is our hospital?s policy to screen for HIV and viral Hepatitis for all patients aged 18 and over and those with ongoing risk factors. Mehran Inquiry Pt receiving controlled substance: No Mehran was queried for this patient: No Vital Signs: 09/23/24 02:26 09/23/24 02:44 Temperature 98.5 F Temperature Source Oral Pulse Rate 64 Pulse Rate [Left] 62 Respiratory Rate 18 16 Blood Pressure 129/70 Blood Pressure [Right Arm] 129/70 Blood Pressure Mean [Right Arm] 89 Blood Pressure Source Automatic Cuff Blood Pressure Source [Right Arm] Automatic Cuff Blood Pressure Position Sitting Blood Pressure Position [Right Arm] Sitting 02 Sat by Pulse Oximetry 97 95 Oxygen Delivery Method Room Air Room Air Lab Data Lab results reviewed: Yes I reviewed the patient's lab results. Lab Results 09/23/24 02:37: WBC 9.0, RBC 4.93, Hgb 14.9, Hct 43.4, MCV 88.0, MCH 30.2, MCHC 34.3, RDW 13.1, Plt Count 287, MPV 10.2, Neut % (Auto) 53.5, Lymph % (Auto) 34.5, Evangeline % (Auto) 7.6, Eos % (Auto) 3.3, Baso % (Auto) 1.0, Neut # (Auto) 4.8, Lymph # (Auto) 3.1, Evangeline # (Auto) 0.7, Eos # (Auto) 0.3, Baso # (Auto) 0.1, Sodium 140, Potassium 3.8, Chloride 110 H, Carbon Dioxide 24, Anion Gap 9.8, BUN 14, Creatinine 0.80, Estimated Creat Clear 160, Estimated GFR 117, Est GFR ( Amer) 141, Glucose 119 H, Calcium 9.3, Total Bilirubin 0.4, AST 26, ALT 34, Alkaline Phosphatase 56, Total Protein 7.3, Albumin 4.8, Globulin 2.5, A lbumin/Globulin Ratio 1.9 H, Lipase 65 09/23/24 02:57: Urine Color Yellow, Urine Appearance Clear, Urine pH 6.0, Ur Specific [place] >= 1.030, Urine Protein Negative, Urine Glucose (UA) Negative, Urine Ketones Negative, Urine Blood Negative, Urine Nitrate Negative, Urine Bilirubin Negative, Urine Urobilinogen 0.2, Ur Leukocyte Esterase Negative, Urine WBC Occasional, Ur Squamous Epith Cells Occasional, Urine Bacteria Trace, Urine Mucus 1+ 09/23/24 02:37 09/23/24 02:37 Orders (Tests/Meds): ED MEDICATIONS Generic Name Dose Route Start Last Admin Trade Name Freq PRN Reason Stop Dose Admin Iopamidol 75 ml 09/23/24 03:11 09/23/24 03:11 Iopamidol-370 (76%);100ml Bottle IV 09/23/24 03:12 75 ml ONCE ONE Administration Sodium Chloride 10 ml 09/23/24 03:11 09/23/24 03:12 Sodium Chloride 0.9% 10ml Syr (Rad Only) IV 10/23/24 03:10 10 ml NEEDED PRN Administration Maintain IV Site ORDERS Category Date Time Status CT abdomen pelvis w con Stat Cat Scan 09/23/24 02:29 Taken CBC w/Auto Diff [Complete Blood Count Auto Diff] Stat Lab 09/23/24 02:37 Completed CMP [Comprehensive Metabolic Panel] Stat Lab 09/23/24 02:37 Completed Lipase Stat Lab 09/23/24 02:37 Completed UA [Urinalysis and Microscopic] Stat Lab 09/23/24 02:57 Completed Medical Decision Narrative: 24-year-old male with history of traumatic brain injury presents for persistent lower abdominal pain. History was obtained via interactive discussion with patient, chart review. On arrival, patient is [afebrile, hemodynamically stable, satting appropriately, alert, oriented x4, GCS 15], moving all extremities spontaneously. Full physical exam performed and significant for mild abdominal tenderness. Differential includes but is not limited to constipation, gastroenteritis, appendicitis, cholecystitis, pancreatitis. Workup initiated including CBC CMP lipase urinalysis CT abdomen pelvis with IV contrast. On re-evaluation, patient [remains afebrile, HD stable.] Laboratory workup independently interpreted by me and significant for no significant leukocytosis, normal electrolytes and renal function, no elevation in lipase. Imaging independently interpreted by me and significant for fluid-filled small bowel and colon, no evidence of cholecystitis or appendicitis.. See radiology read for full review of final results. Given patient history, exam and workup, patient's presentation most likely represents watery stool secondary to recent MiraLAX usage in the setting of previous constipation. Patient was discharged in stable condition with return precautions. Procedures Risk/Benefits of Procedure(s) Were Explained: Yes Critical Care Critical Care Time Critical Care Time: No
[2024-09-23 02:44] VITALS: BP 129/70; PULSE 64; RESP 16; O2SAT 95
[2024-09-23 02:45] LABS: Basophils # 0.1 K/mm3 (0-0.2); Eosinophils # 0.3 Kmm3 (0.0-0.4); Eosinophils % 3.3 % (0.1-12.0); Hematocrit 43.4 % (42.0-52.0); Hemoglobin 14.9 g/dL (14.1-18.0); Immature Granulocytes # 0.01 10^3uL; Immature Granulocytes % 0.1 %; Lymphocytes # 3.1 K/mm3 (0.7-4.5); Lymphocytes % 34.5 % (10-50); Mean Corpuscular HGB Conc 34.3 g/dL (31.8-35.4); Mean Corpuscular Hemoglobin 30.2 pg (27.0-31.2); Mean Platelet Volume 10.2 fl (7.4-10.4); Monocytes # 0.7 K/mm3 (0.1-1.0); Monocytes % 7.6 % (1.7-9.3); Neutrophils # 4.8 K/mm3 (1.8-7.8); Neutrophils % 53.5 % (37.0-80.0); Nucleated Red Blood Cells # 0 10^3/uL; Nucleated Red Blood Cells % 0 %; Platelet Count 287 K/mm3 (142-424); Red Blood Count 4.93 M/mm3 (4.60-6.20); Red Cell Distribution Width 13.1 % (11.5-17.5); Red Cell Distribution Width-SD 42.1 fL
[2024-09-23 02:55] LABS: Albumin Level 4.8 g/dl (3.5-5.0); Chloride 110 mmol/L (98-107); Sodium 140 mmol/L (136-145)
[2024-09-23 02:56] LABS: Potassium 3.8 mmoL/L (3.5-5.1)
[2024-09-23 02:58] LABS: Alanine Aminotransferase 34 U/L (12-78); Albumin/Globulin Ratio 1.9 (1.1-1.8); Alkaline Phosphatase 56 U/L (38-126); Anion Gap 9.8 mEq/L (5-15); Aspartate Amino Transferase 26 U/L (17-59); Bilirubin,Total 0.4 mg/dl (0.2-1.3); Blood Urea Nitrogen 14 mg/dl (9-20); Carbon Dioxide 24 mmol/L (22.0-30.0); Creatinine Clearance Estimated 160 mL/min (50-200); Estimated Glomerular Filt Rate 117 ml/min (>60); GFR (African American) 141 ML/MIN (>60); Globulin 2.5 g/dL (1.3-3.2); Lipase 65 U/L (23-300); Total Protein,Serum 7.3 g/dl (6.3-8.2)
[2024-09-23 02:59] LABS: Calcium 9.3 mg/dl (8.4-10.2); Glucose 119 mg/dl (74-100)
[2024-09-23 03:01] LABS: Microscopic, Urine URINE MICROSCOPIC (MICROSCOPIC)
[2024-09-23 03:03] LABS: Appearance,Urine CLEAR (Clear); Bilirubin,Urine Negative (Negative); Blood, Urine Negative (Negative); Color,Urine YELLOW (Yellow); Glucose,Urine (UA) Negative (Negative); Ketones,Urine Negative (Negative); Leukocyte Esterase,Urine Negative (Negative); Nitrate,Urine Negative (Negative); Protein,Urine Negative (Negative); Specific Gravity, Urine >= 1.030 (1.005-1.030); Urobilinogen,Urine 0.2 EU/dl (0.2)
[2024-09-23] MEDS: IOPAMIDOL-370 (76%);100ML BOTTLE 75 ML IV (03:11)
[2024-09-23 03:12] LABS: Bacteria,Urine Trace /lpf; Mucus,Urine 1+ /lpf; Squamous Epithelial Cell,Urine Occasional #/hpf (0-5); WBC,Urine Occasional #/hpf (0-3)
[2024-09-23] MEDS: SODIUM CHLORIDE 0.9% 10ML SYR (RAD ONLY) 10 ML IV (03:12)
[2024-09-23 03:13] VITALS: BP 129/70; PULSE 64; RESP 16; TEMP 36.4; O2SAT 98
== END 2024-09-23 03:20 | disposition home or self-care (01) ==
PROVIDERS: Emergency Provider Emergency Medicine; PCP Nurse Practitioner Family
DX: R10.30 Lower abdominal pain, unspecified (principal); R19.7 Diarrhea, unspecified
CPT/HCPCS: 74177; 80053; 81001; 83690; 85025; 99284; Q9967

== ENCOUNTER 2024-10-02 07:08 | Outpatient (CLI) | payer MEDICAID, SELFPAY ==
--- NOTE | 2024-10-02 07:30 | US_ITS ---
FINAL REPORT TECHNIQUE: Ultrasound images of the abdomen were obtained. CLINICAL HISTORY: Abdominal pain COMPARISON: None FINDINGS: ULTRASOUND ABDOMEN The liver is unremarkable. Spleen has a normal sonographic appearance. No abnormality of the gallbladder is seen. No biliary ductal dilatation is identified. There is a central right renal cyst measuring 14 mm. The kidneys are otherwise unremarkable. Pancreas is not well visualized. IVC and aorta are grossly unremarkable. There is no obvious fluid collection. IMPRESSION: Unremarkable abdominal ultrasound. Reviewed, Interpreted and Dictated by Margarita Anthony MD Transcribed by Naheed Paul Authenticated and [facility]
== END 2024-10-02 23:59 | disposition home or self-care (01) ==
LOC: RAD 07:09
PROVIDERS: PCP Nurse Practitioner Family; Visit Provider Nurse Practitioner Family
DX: N28.1 Cyst of kidney, acquired (principal); R10.31 Right lower quadrant pain; R10.32 Left lower quadrant pain
CPT/HCPCS: 76700

== ENCOUNTER 2024-10-14 10:01 | Emergency (ER) | payer MEDICAID, SELFPAY ==
--- NOTE | 2024-10-14 10:10 | ED_ITS ---
<Statement entered by Juli Paulson DO - 10/14/24 14:57> I was consulted by the PRANAV, and we discussed the complexity of the problems being addressed. I approved the treatment and management plan for this patient's care in the emergency department, thus performing a substantive portion of the medical decision making. Juli Paulson DO Discharge Plan Prescriptions Prescriptions: No Action linaclotide 290 mcg capsule 290 mcg PO DAILY 30 Days Qty: 30 2RF acetaminophen 500 mg capsule 1,000 mg PO Q6H PRN (Reason: pain) Qty: 90 0RF ibuprofen 200 mg tablet 600 mg PO Q6H PRN (Reason: pain) Qty: 90 0RF Referrals Follow up/Referrals: Bia Dasilva APRN [Primary Care Provider, Medical] - See instructions Print Language Print Language: Turkish Discharge ED Provider: Juli Paulson General Adult HPI General Stated complaint: constipation Time Seen by Provider: 10/14/24 10:07 History of Present Illness HPI narrative: patient is a 24-year-old male PMHx history of abdominal pain, chronic constipation, dental pain, TBI who presented to the ED requesting a brief to urinate in. Related Data Previous Rx's ?Medication ?Instructions ?Recorded acetaminophen 500 mg capsule 1,000 mg (2 x 500 mg) PO Q6H PRN 08/13/24 pain #90 caps ibuprofen 200 mg tablet 600 mg (3 x 200 mg) PO Q6H P RN 08/13/24 pain #90 tabs linaclotide 290 mcg capsule 290 mcg PO DAILY 30 days # 30 caps 09/29/24 Allergies Allergy/AdvReac Type Severity Reaction Status Date / Time No Known Allergies Allergy Verified 09/29/24 10:52 [facility] Disclaimer: The information contained in this section may have been updated after the patient was seen, as this information can be updated by other users. Medical History Chronic idiopathic constipation Feeding by G-tube s/p TBI (traumatic brain injury) 2016/ Surgical History S/P emergency tracheotomy for assistance in breathing Family History Father Heart attack Mother FHx: mental illness Social History Smoking Status: Current some day smoker tobacco type: cigarettes packs per day: 1 second hand exposure: Yes alcohol intake: never substance use type: marijuana current occupational status: other Travel in the last 8 weeks?: None household members: family Have you lived/traveled outside US in past 30 days?: No Contact w/someone who lives/traveled outside US past 30 days?: No Exposure to someone with infectious disease in past 14 days?: No Do you have a fever (greater than 100.4 F or 38 C)?: No Have you tested positive for COVID-19?: No Exposed to someone with COVID-19 in past 14 days?: No Do you have a sore throat?: No Do you have a cough?: No Do you have any weakness?: No Do you have any diarrhea?: No Are you experiencing any unusual bleeding?: No Do you have any muscle aches/pain?: No Do you have any abdominal pain?: No Are you experiencing loss of taste or smell?: No Other Medical History Have you received the Flu Vaccine for this season: Yes Have you received the Pneumonia Vaccine: No ROS Obtained: Yes other Physical Exam General General appearance: alert Chest Chest inspection: Present tenderness Respiratory Respiratory exam: Absent respiratory distress Cardiovascular Cardiovascular exam: Present regular rate Abdominal Exam Abdominal exam: Present tenderness Neurological Exam Neurological exam: Present alert and oriented X3 Medical Decision Making Medical Records Screening: Per USPSTF and CDC recommendations, given the prevalence of disease in our region, it is our hospital?s policy to screen for HIV and viral Hepatitis for all patients aged 18 and over and those with ongoing risk factors. Mehran Inquiry Pt receiving controlled substance: No Medical Decision Narrative: In summary, patient is a 24-year-old male PMHx history of abdominal pain, chronic constipation, dental pain, TBI who presented to the ED requesting a brie f to urinate in. After being triaged, patient states that he only wanted a brief, does not want to be seen by a provider. Records reviewed, imaging on 09/20/2024 KUB final read small to moderate colonic stool burden. Imaging reviewed from 09/23/2024, CT of the abdomen and pelvis final read unremarkable for any acute findings, fluid-filled colon raising suspicion for diarrheal illness. Imaging reviewed from 10/02/2024 abdominal ultrasound final read unremarkable. Pt eloped Critical Care Critical Care Time Critical Care Time: No
[2024-10-14 10:15] VITALS: BP 125/75; PULSE 77; RESP 15; TEMP 36.9; O2SAT 98; BMI 25.2
== END 2024-10-14 10:21 | disposition left against medical advice (07) ==
PROVIDERS: Emergency Provider Emergency Medicine; PCP Nurse Practitioner Family
DX: K59.00 Constipation, unspecified (principal); Z53.21 Procedure and treatment not carried out due to patient leaving prior to being seen by health care provider
CPT/HCPCS: 99281

== ENCOUNTER 2024-10-15 19:41 | Emergency (ER) | payer MEDICAID, SELFPAY ==
[2024-10-15 19:45] VITALS: BP 102/69; PULSE 76; RESP 18; TEMP 36.6; O2SAT 100; BMI 32.1
[2024-10-15 20:00] VITALS: BP 128/72; PULSE 74; RESP 16; TEMP 36.6; O2SAT 98
--- NOTE | 2024-10-15 20:00 | HMH.EDGENADL ---
Discharge Plan Disposition Chief Complaint: Abdominal Pain Prescriptions Prescriptions: New bisacodyl [Dulcolax (bisacodyl)] 10 mg suppository 10 mg MT DAILY 2 Days Qty: 12 0RF magnesium citrate Solution 296 ml PO ONCE PRN (Reason: constipation) Qty: 296 0RF No Action linaclotide 290 mcg capsule 290 mcg PO DAILY 30 Days Qty: 30 2RF acetaminophen 500 mg capsule 1,000 mg PO Q6H PRN (Reason: pain) Qty: 90 0RF ibuprofen 200 mg tablet 600 mg PO Q6H PRN (Reason: pain) Qty: 90 0RF Referrals Follow up/Referrals: Bia Dasilva APRN [Primary Care Provider, Medical] - See instructions Activity Restrictions/Add. Instructions Additional Instructions/Restrictions: You have a benign abdominal exam today. You recently had x-rays that demonstrated moderate stool burden consistent with constipation. Your symptoms today are also consistent with constipation. Please take your Dulcolax and magnesium citrate as needed to clear yourself out. After that you may take [id number] MiraLAX he may take half a cap twice a day as needed until you are having soft bowel movements daily. Please follow-up with your primary care doctor. Clinical Impressions Clinical Impression: Constipation Instructions Patient Instructions: DI for Acute Abdominal Pain Print Language Print Language: Georgian Discharge ED Provider: Joe Tellez General Adult HPI General Chief complaint: Abdominal Pain Stated complaint: constipated Time Seen by Provider: 10/15/24 19:46 Mode of Arrival: Wheelchair Source of Information: Patient Description of Symptoms (Recalled from ER Triage Doc. by RN): Pt presents for evaluation LLQ abdominal pain x 2 days and expresses concern that he may be constipated History of Present Illness HPI narrative: Patient is a 24-year-old male well-known to our emergency department just here a few days ago because he wanted a brief period has had recent imaging showing moderate stool burden. Is here because he states he is constipated. Purchased a fleets enema and specifically asks if one of our nurses can help administer to him today. States he is had constipation in the past and feels that this he can have a bowel movement he would feel better. Has not tried any other medications prior to that today. Denies any blood in the stool fevers chills etc. Related Data Previous Rx's ?Medication ?Instructions ?Recorded acetaminophen 500 mg capsule 1,000 mg (2 x 500 mg) PO Q6H PRN 08/13/24 pain #90 caps ibuprofen 200 mg tablet 600 mg (3 x 200 mg) PO Q6H PRN 08/13/24 pain #90 tabs linaclotide 290 mcg capsule 290 mcg PO DAILY 30 days #30 caps 09/29/24 bisacodyl 10 mg rectal suppository 10 mg MT DAILY 2 days #12 ea 10/15/24 (Dulcolax (bisacodyl)) magnesium citrate 296 ml PO ONCE PRN constipation 10/15/24 #296 mL Allergies Allergy/AdvReac Type Severity Reaction Status Date / Time No Known Allergies Allergy Verified 09/29/24 10:52 [facility] Disclaimer: The information contained in this section may have been updated after the patient was seen, as this information can be updated by other users. Medical History Chronic idiopathic constipation Feeding by G-tube s/p TBI (traumatic brain injury) 2016/ Surgical History S/P emergency tracheotomy for assistance in breathing Family History Father Heart attack Mother FHx: mental illness Social History Smoking Status: Current every day smoker tobacco type: cigarettes packs per day: 1 second hand exposure: Yes alcohol intake: never substance use type: marijuana current occupational status: other Travel in the last 8 weeks?: None household members: family Other Medical History Have you received the Flu Vaccine for this season: Yes Have you received the Pneumonia Vaccine: No ROS Obtained: Yes All systems reviewed & no additional complaints except as documented Physical Exam General General appearance: alert Respiratory Respiratory exam: Present normal lung sounds bilaterally Cardiovascular Cardiovascular exam: Present regular rate Abdominal Exam Abdominal exam: Present soft; Absent distention or tenderness Neurological Exam Neurological exam: Present alert and oriented X3 Medical Decision Making Medical Records Screening: Per USPSTF and CDC recommendations, given the prevalence of disease in our region, it is our hospital?s policy to screen for HIV and viral Hepatitis for all patients aged 18 and over and those with ongoing risk factors. Mehran Inquiry Pt receiving controlled substance: No Vital Signs: 10/15/24 19:45 Temperature 98 F Temperature Source Temporal Artery Scan Pulse Rate [Right] 76 Respiratory Rate 18 Blood Pressure [Right Arm] 102/69 L Blood Pressure Mean [Right Arm] 80 Blood Pressure Source [Right Arm] Automatic Cuff Blood Pressure Position [Right Arm] Sitting 02 Sat by Pulse Oximetry 100 Medical Decision Narrative: 24-year-old with a history of traumatic brain injury presented today dropping himself in his motorized wheelchair complaining of constipation. He has a completely benign abdominal exam and not worried about any surgical pathology at the moment. Is here regularly for similar complaints. Recently had imaging showing moderate stool burden. Clinically this is consistent with constipation. He has not tried any significant stool softeners at [facility]. He asked for one of our nurses to administer a fleets enema that he purchased. I do not feel that is necessary emergently. I prescribed him Dulcolax as well as magnesium citrate and advised that he take MiraLAX after this to clean himself out. I have also advised that he follow-up with his primary care doctor for similar complaints in the future. And to return the emergency department with any significant or worsening or severe abdominal pain. Critical Care Critical Care Time Critical Care Time: No
== END 2024-10-15 20:04 | disposition home or self-care (01) ==
PROVIDERS: Emergency Provider Student in an Organized Health Care Education/Training Program; PCP Nurse Practitioner Family
DX: R10.32 Left lower quadrant pain (principal); K59.00 Constipation, unspecified
CPT/HCPCS: 99283

== ENCOUNTER 2024-12-10 22:26 | Emergency (ER) | payer MEDICAID, SELFPAY ==
[2024-12-10 22:36] VITALS: BP 130/76; PULSE 82; RESP 16; TEMP 36.9; O2SAT 97; BMI 25.7
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
--- OUTSIDE RECORDS SUMMARY | 2024-12-10 22:39 | XMS_ITS | Clinical Summary ---
Author Organization [facility] Address [address] [place] [address] Phone Care Team Providers Care Cosmetic Dentist Name Role Phone Henry Jacome MD Unavailable [ ] Conditions or Problems No information available. Medications No information available. Medications Administered No information available. Allergies, Adverse Reactions, Alerts No information available. Results No information available. Plan of Care No information available. Procedures No information available. Vital Signs No information available. Immunizations No information available. Advance Directives No information available.
--- NOTE | 2024-12-10 22:40 | XR_ITS ---
PROCEDURE INFORMATION: Exam: XR Left Knee Exam date and time: 12/10/2024 10:38 PM Age: 24 years old Clinical indication: Pain; Knee; Left; Additional info: Fell outta chair TECHNIQUE: Imaging protocol: Radiologic exam of the left knee. Views: 3 views. Total images: 3 COMPARISON: CR XR KNEE LT 3V 01/04/2019 10:52 PM FINDINGS: Bones/joints: No acute fracture, joint dislocation, or joint effusion. No concerning bone lesions. Unremarkable joint spaces. Soft tissues: Unremarkable soft tissues. IMPRESSION: Negative left knee.
--- NOTE | 2024-12-10 22:40 | XR_ITS ---
PROCEDURE INFORMATION: Exam: XR Left Shoulder Exam date and time: 12/10/2024 10:40 PM Age: 24 years old Clinical indication: Pain; Shoulder; Left; Additional info: Fall TECHNIQUE: Imaging protocol: Radiologic exam of the left shoulder. Views: 2 or more views. Total images: 3 COMPARISON: CR XR SHOULDER LT MIN 2V 02/24/2021 1:11 PM FINDINGS: Bones/joints: No acute fracture, joint dislocation, or AC joint separation. Unremarkable joint spaces. Maintained subacromial distance. No concerning bone lesions. Soft tissues: Unremarkable soft tissues. IMPRESSION: Negative left shoulder.
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
[2024-12-10 22:42] VITALS: PULSE 83
[2024-12-10] MEDS: IBUPROFEN 600 MG TABLET PO (22:57)
[2024-12-10] MEDS: ACETAMINOPHEN 500MG TAB 1000 MG PO (22:57)
[2024-12-10 23:27] VITALS: BP 118/70; PULSE 72; RESP 16; TEMP 37.1; O2SAT 97
[2024-12-10 23:50] VITALS: BP 138/78; PULSE 66; RESP 16; TEMP 36.4; O2SAT 98
== END 2024-12-10 23:51 | disposition home or self-care (01) ==
PROVIDERS: Emergency Provider Emergency Medicine; PCP Nurse Practitioner Family
DX: M25.512 Pain in left shoulder (principal); M25.562 Pain in left knee; W19.XXXA Unspecified fall, initial encounter
CPT/HCPCS: 73030; 73562; 99284

== ENCOUNTER 2025-03-27 09:16 | Outpatient (CLI) | payer MEDICAID, SELFPAY ==
[2025-03-27 17:04] LABS: Hematocrit 46.1 % (42.0-52.0); Hemoglobin 15.5 g/dL (14.1-18.0); Immature Granulocytes % 0.3 %; Mean Corpuscular HGB Conc 33.6 g/dL (31.8-35.4); Mean Corpuscular Hemoglobin 29.9 pg (27.0-31.2); Mean Corpuscular Volume 89.0 fl (80-94); Nucleated Red Blood Cells % 0 %; Platelet Count 333 K/mm3 (142-424); Red Blood Count 5.18 M/mm3 (4.60-6.20); Red Cell Distribution Width-SD 42.5 fL; White Blood Count 12.9 K/mm3 (4.8-10.8)
[2025-03-27 17:30] LABS: Chloride 100 mmol/L (98-107)
[2025-03-27 17:31] LABS: Albumin Level 5.0 g/dl (3.5-5.0); Potassium 4.5 mmoL/L (3.5-5.1); Sodium 142 mmol/L (136-145)
[2025-03-27 17:33] LABS: Alanine Aminotransferase 22 U/L (12-78); Albumin/Globulin Ratio 1.9 (1.1-1.8); Alkaline Phosphatase 48 U/L (38-126); Anion Gap 18.5 mEq/L (5-15); Aspartate Amino Transferase 26 U/L (17-59); Bilirubin,Total 0.5 mg/dl (0.2-1.3); Blood Urea Nitrogen 6 mg/dl (9-20); Carbon Dioxide 28 mmol/L (22.0-30.0); Creatinine,Serum 0.90 mg/dl (0.66-1.25); Estimated Glomerular Filt Rate 102 ml/min (>60); GFR (African American) 123 ML/MIN (>60); Globulin 2.7 g/dL (1.3-3.2); Total Protein,Serum 7.7 g/dl (6.3-8.2)
[2025-03-27 17:34] LABS: Calcium 9.9 mg/dl (8.4-10.2); Glucose 83 mg/dl (74-100)
[2025-03-27 18:05] LABS: Thyroid Stimulating Hormone 1.23 uIU/mL (0.465-4.68)
== END 2025-03-27 23:59 | disposition home or self-care (01) ==
LOC: LAB.DROPOF 03-28 09:16
PROVIDERS: PCP Nurse Practitioner Family; Visit Provider Nurse Practitioner Family
DX: K59.00 Constipation, unspecified (principal)
CPT/HCPCS: 80053; 84443; 85025

== ENCOUNTER 2025-04-27 16:06 | Outpatient (CLI) | payer MEDICAID, SELFPAY ==
--- NOTE | 2025-04-27 16:08 | XR_ITS ---
PROCEDURE INFORMATION: Exam: XR Chest Exam date and time: 04/27/2025 4:10 PM Age: 25 years old Clinical indication: Pain; Chest pressure; Additional info: Left sided chest pain TECHNIQUE: Imaging protocol: Radiologic exam of the chest. Views: 2 views. COMPARISON: CR XR CHEST 2V 09/26/2019 11:25 PM FINDINGS: Lungs: Unremarkable. No consolidation. Pleural spaces: Unremarkable. No pleural effusion. No pneumothorax. Heart/Mediastinum: Unremarkable. No cardiomegaly. Bones/joints: Unremarkable. IMPRESSION: No acute findings.
[2025-04-27 16:26] LABS: Hematocrit 42.5 % (42.0-52.0); Hemoglobin 14.8 g/dL (14.1-18.0); Immature Granulocytes % 0.2 %; Mean Corpuscular HGB Conc 34.8 g/dL (31.8-35.4); Mean Corpuscular Hemoglobin 30.0 pg (27.0-31.2); Mean Corpuscular Volume 86.2 fl (80-94); Nucleated Red Blood Cells % 0 %; Platelet Count 309 K/mm3 (142-424); Red Blood Count 4.93 M/mm3 (4.60-6.20); Red Cell Distribution Width-SD 39.2 fL; White Blood Count 10.0 K/mm3 (4.8-10.8)
[2025-04-27 17:58] LABS: Alanine Aminotransferase 28 U/L (12-78); Albumin Level 5.2 g/dl (3.5-5.0); Albumin/Globulin Ratio 1.9 (1.1-1.8); Alkaline Phosphatase 58 U/L (38-126); Anion Gap 13.5 mEq/L (5-15); Aspartate Amino Transferase 26 U/L (17-59); Bilirubin,Total 0.8 mg/dl (0.2-1.3); Blood Urea Nitrogen 10 mg/dl (9-20); Calcium 10.0 mg/dl (8.4-10.2); Carbon Dioxide 25 mmol/L (22.0-30.0); Chloride 103 mmol/L (98-107); Cholesterol 160 mg/dl (140-200); Creatinine,Serum 1.00 mg/dl (0.66-1.25); Estimated Glomerular Filt Rate 90 ml/min (>60); GFR (African American) 108 ML/MIN (>60); Globulin 2.8 g/dL (1.3-3.2); Glucose 87 mg/dl (74-100); HDL Cholesterol 43 mg/dl (40-60); Magnesium 1.8 mg/dl (1.6-2.3); Potassium 4.5 mmoL/L (3.5-5.1); Sodium 137 mmol/L (136-145); Total Protein,Serum 8.0 g/dl (6.3-8.2); Triglycerides 91 mg/dl (30-150)
[2025-04-27 18:11] LABS: Troponin I < 0.01 ng/ml (0.00-0.034)
[2025-04-27 18:28] LABS: Thyroid Stimulating Hormone 1.02 uIU/mL (0.465-4.68)
== END 2025-04-27 23:59 | disposition home or self-care (01) ==
LOC: LAB 16:06
PROVIDERS: PCP Nurse Practitioner Family; Visit Provider Nurse Practitioner Family
DX: R07.89 Other chest pain (principal); Z72.89 Other problems related to lifestyle; Z72.0 Tobacco use
CPT/HCPCS: 36415; 71046; 80053; 80061; 83735; 84443; 84484; 85025

== ENCOUNTER 2025-04-28 17:53 | Emergency (ER) | payer MEDICAID, SELFPAY ==
[2025-04-28] VITALS (12 sets, daily range): BP systolic 110–125; BP diastolic 56–74; PULSE 55–70; RESP 13–20; TEMP 36.6–36.9; O2SAT 96–98; BMI 24.8
--- NOTE | 2025-04-28 18:00 | ECG_ITS ---
APPROVED REPORT Exam: Resting ECG HR:55 bpm ECG Measurements Heart Rate 55 AXES AL 166 P 39 QRSd 93 QRS 54 QT 369 T 53 QTc 358 Conclusion Sinus bradycardia without acute ST or T wave changes concerning for ischemia Electronically signed by : Beatriz Sepulveda, 04/28/2025 23:49:09
--- OUTSIDE RECORDS SUMMARY | 2025-04-28 18:17 | XMS_ITS | Clinical Summary ---
Author Organization [facility] Address [address] [place] [address] Phone Care Team Providers Care In House Counsel Name Role Phone Henry Jacome MD Unavailable [...]
--- OUTSIDE RECORDS SUMMARY | 2025-04-28 18:17 | XMS_ITS | Clinical Summary ---
Author Organization Healthcare Address [address] [place] [address] Care Team Providers Care Java Engineer Name Role Phone Xander David Unavailable Unavailable Bia Dasilva APRN Primary Care Provider [phone] Allergies No known active allergies Medications aspirin 81 MG EC tablet Take 1 tablet (81 mg) by mouth 1 (one) time each day. 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 (CMS/HCC); Major neurocognitive disorder as late effect of traumatic brain injury with behavioral disturbance (CMS/HCC) from Last 3 Months Family History Medical History Relation Name Comments Cardiac disorder Father Bipolar disorder Mother Depression Mother Relation Name Status Comments Father Mother Social History Tobacco Use Types Packs/Day Years Used Date Smoking Tobacco: Every Day Cigarettes 1 10.6 Started: 09/11/2014 Smokeless Tobacco: Never Tobacco Cessation:Ready [...] 12/11/2023 11:02 AM EDT Plan of Treatment Health Maintenance Due Date Last Done Comments [facility]-HIV Screening 1998 [facility]-Hepatitis C Screening 1998 [facility]-/Child/Adol SDOH Screenings 1998 [facility]-Varicella Vaccines (1 of 2 - 13+ 2-dose series) 2011 [facility]- SDOH Screenings 2016 [facility]-Adult SDOH Screenings 2016 [facility]-DTaP,Tdap,and Td Vaccines (1 - Tdap) 2017 [facility]-Hepatitis B Vaccines (1 of 3 - 19+ 3-dose series) 2017 [facility]-Depression Screening 12/10/2024 024, 02/28/2021 [facility]-AWWUU-50 Vaccine (3 - 2024- season) 2025 08/06/2020, 07/09/2020 [facility]-Influenza Vaccine (#1) 2025 [facility]-Zoster Vaccines (1 of 2) 2048 HPV Vaccines (No Doses Required) Completed [facility]-HIB Vaccines Aged Out No longer e ligible based on patient's age to complete this topic [facility]-Hepatitis A Vaccines Aged Out No longer eligible based on patient's age to complete this topic [facility]-IPV Vaccines Aged Out No longer e ligible based on patient's age to complete this topic [facility]-Pneumococcal Vaccine: Pediatrics (0 to 5 Years) and At-Risk Patients (6 to 49 Years) Aged Out No longer eligible b ased on patient's age to complete this topic [facility]-Rotavirus Vaccines Aged Out No lo nger eligible based on patient's age to complete this topic Insurance [employer] [place] Care Teams Java Engineer Relationship Specialty Start Date End Date Bia Dasilva APRN [address] [place] [address] PCP - General 12/25/24 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
--- OUTSIDE RECORDS SUMMARY | 2025-04-28 18:17 | XMS_ITS | Encounter Summary ---
Author Organization Healthcare Address [address] [place] [address] Care Team Providers Care Global Account Executive Name Role Phone Xander David Unavailable Unavailable Bia Dasilva APRN Primary Care Provider [phone]- [phone] Reason for Visit * Reason Comments Med Refill Encounter Details Date Type Department Care Team (Late st Contact Info) Description 04/12/2025 Refill [facility] at [facility] [address] [place] [address] Elio Muñoz, [address] [place] [address] Traumatic brain injury, with loss of consciousness greater than 24 hours without return to pre-existing conscious level with patient surviving, subsequent encounter; Mood disorder as late effect of traumatic brain injury; Agitation; 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; Major neurocognitive disorder as late effect of traumatic brain injury with behavioral disturbance Social History Tobacco Use Types Packs/Day Years Used Date Smoking Tobacco: Every Day Cigarettes 1 10.6 Started: 09/11/2014 Smokeless Tobacco: Never Alcohol Use Standard Drinks/Week Comments No 0 (1 standard drink = 0.6 oz pur e alcohol) PHQ-2 Answer Date Recorded Patient Health Questionnaire-2 Score 0 12/11/2023 Sex and Gender Information Value Date Recorded Sex Assigned at Not on file Legal Sex Male 6:05 PM EDT Gender Identity Not on file Sexual Orientation Not on file documented as of this encounter Plan of Treatment Not on file documented as of this encounter Visit Diagnoses Diagnosis Traumatic brain injury, with loss of consciousness greater than 24 hours without return to pre-existing conscious level with patient surviving, subsequent encounter Mood disorder as late effect of traumatic brain injury Agitation Other and unspecified special symptom or syndrome, not elsewhere classified 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
[2025-04-28 18:29] LABS: Hematocrit 43.9 % (42.0-52.0); Hemoglobin 15.0 g/dL (14.1-18.0); Immature Granulocytes % 0.2 %; Mean Corpuscular HGB Conc 34.2 g/dL (31.8-35.4); Mean Corpuscular Hemoglobin 29.6 pg (27.0-31.2); Mean Corpuscular Volume 86.8 fl (80-94); Nucleated Red Blood Cells % 0 %; Platelet Count 340 K/mm3 (142-424); Red Blood Count 5.06 M/mm3 (4.60-6.20); Red Cell Distribution Width-SD 40.2 fL; White Blood Count 10.0 K/mm3 (4.8-10.8)
[2025-04-28 18:39] LABS: Alanine Aminotransferase 29 U/L (12-78); Albumin Level 5.1 g/dl (3.5-5.0); Albumin/Globulin Ratio 1.8 (1.1-1.8); Alkaline Phosphatase 57 U/L (38-126); Anion Gap 14.7 mEq/L (5-15); Aspartate Amino Transferase 23 U/L (17-59); Bilirubin,Total 0.5 mg/dl (0.2-1.3); Blood Urea Nitrogen 16 mg/dl (9-20); Calcium 9.9 mg/dl (8.4-10.2); Carbon Dioxide 25 mmol/L (22.0-30.0); Chloride 106 mmol/L (98-107); Creatinine Clearance Estimated 127 mL/min (50-200); Creatinine,Serum 1.00 mg/dl (0.66-1.25); Estimated Glomerular Filt Rate 90 ml/min (>60); GFR (African American) 108 ML/MIN (>60); Globulin 2.9 g/dL (1.3-3.2); Glucose 109 mg/dl (74-100); Potassium 3.7 mmoL/L (3.5-5.1); Sodium 142 mmol/L (136-145); Total Protein,Serum 8.0 g/dl (6.3-8.2)
--- NOTE | 2025-04-28 18:49 | XR_ITS ---
PROCEDURE INFORMATION: Exam: XR Chest Exam date and time: 04/28/2025 7:11 PM Age: 25 years old Clinical indication: Pain; Chest pressure; Additional info: Chest pain TECHNIQUE: Imaging protocol: Radiologic exam of the chest. Views: 2 views. COMPARISON: CR XR CHEST 2V 04/27/2025 4:10 PM FINDINGS: Lungs: Unremarkable. No consolidation. Pleural spaces: Unremarkable. No pleural effusion. No pneumothorax. Heart/Mediastinum: Unremarkable. No cardiomegaly. Bones/joints: Unremarkable. IMPRESSION: No acute findings.
[2025-04-28 18:56] LABS: Troponin I < 0.01 ng/ml (0.00-0.034)
[2025-04-28 19:07] LABS: Lipase 55 U/L (23-300)
--- NOTE | 2025-04-28 19:37 | HMH.EDGENADL ---
Discharge Plan Disposition Patient Disposition: Home, Self-Care Condition: Good Prescriptions Prescriptions: New acetaminophen [Tylenol Extra Strength] 500 mg tablet 500 mg PO Q6H PRN (Reason: pain) 3 Days Qty: 20 0RF ibuprofen 600 mg tablet 600 mg PO TID PRN (Reason: pain) 3 Days Qty: 20 0RF No Action propranolol 10 mg tablet 10 mg PO TID prucalopride [Motegrity] 2 mg tablet 2 mg PO DAILY Qty: 30 2RF olanzapine 10 mg tablet 10 mg PO QPM bisacodyl [Dulcolax (bisacodyl)] 10 mg suppository 10 mg AZ DAILY 2 Days Qty: 12 0RF linaclotide 290 mcg capsule 290 mcg PO DAILY 30 Days Qty: 30 2RF magnesium citrate,mag oxide 250 mg capsule 250 mg PO HS Qty: 30 3RF acetaminophen 500 mg capsule 1,000 mg PO Q6H PRN (Reason: pain) Qty: 90 0RF ibuprofen 200 mg tablet 600 mg PO Q6H PRN (Reason: pain) Qty: 90 0RF Referrals Follow up/Referrals: Bia Dasilva APRN [Primary Care Provider, Medical] - See instructions Activity Restrictions/Add. Instructions Additional Instructions/Restrictions: Take tylenol and ibuprofen as needed. Return to the ER for any acute or worsening symptoms. Clinical Impressions Clinical Impression: Chest pain Print Language Print Language: Setswana Discharge ED Provider: Beatriz Sepulveda Adult HPI General Chief complaint: Chest Pain Stated complaint: Chest Pain Time Seen by Provider: 04/28/25 19:37 Mode of Arrival: Ambulatory Source of Information: Patient Description of Symptoms (Recalled from ER Triage Doc. by RN): patient states he has had left sided chest pain that is pressure since 25mins ago. History of Present Illness HPI narrative: Patient is a 25-year-old male with no significant past medical history who presents to the emergency department with chest pain that started around 5 PM today. Patient states that its left-sided but has now resolved on my evaluation. Patient states that his pain did not radiate was a dull ache in nature. Patient denied any shortness of breath. Patient denies any recent upper respiratory symptoms. Patient denies any abdominal pain nausea vomiting or diarrhea. Patient denies any recent travel. Patient denies any coughing up blood. Patient denies being on any hormones. Patient denies any prior histories of blood clots. Patient did not take any medications prior to arrival. Patient denies any recent trauma. Related Data Home Medications ?Medication ?Instructions ?Recorded ?Confirmed propranolol 10 mg tablet 10 mg PO TID 11/21/24 04/27/25 olanzapine 10 mg tablet 10 mg PO QPM 03/27/25 04/27/25 Previous Rx's ?Medication ?Instructions ?Recorded acetaminophen 500 mg capsule 1,000 mg (2 x 500 mg) PO Q6H PRN 08/13/24 pain #90 caps ibuprofen 200 mg tablet 600 mg (3 x 200 mg) PO Q6H PRN 08/13/24 pain #90 tabs prucalopride 2 mg tablet 2 mg PO DAILY #30 tabs 01/23/25 (Motegrity) magnesium citrate,mag oxide 250 mg 250 mg PO HS #30 caps 02/13/25 capsule bisacodyl 10 mg rectal suppository 10 mg AZ DAILY 2 days #12 ea 03/27/25 (Dulcolax (bisacodyl)) linaclotide 290 mcg capsule 290 mcg PO DAILY 30 days #30 caps 03/27/25 acetaminophen 500 mg tablet 500 mg PO Q6H PRN pain 3 days #20 04/28/25 (Tylenol Extra Strength) tabs ibuprofen 600 mg tablet 600 mg PO TID PRN pain 3 days #20 04/28/25 tabs Allergies Allergy/AdvReac Type Severity Reaction Status Date / Time No Known Allergies Allergy Verified 04/27/25 15:07 [facility] Disclaimer: The information contained in this section may have been updated after the patient was seen, as this information can be updated by other users. Medical History Chronic idiopathic constipation Feeding by G-tube s/p TBI (traumatic brain injury) 2016/ Surgical History S/P emergency tracheotomy for assistance in breathing Family History Father Heart attack Mother FHx: mental illness Social History Smoking Status: Current every day smoker tobacco type: cigarettes packs per day: 1 and e-cigarettes second hand exposure: Yes alcohol intake: current alcohol intake frequency: holidays/special occasions only substance use type: marijuana current occupational status: disabled Travel in the last 8 weeks?: None household members: family Have you lived/traveled outside US in past 30 days?: No Contact w/someone who lives/traveled outside US past 30 days?: No Exposure to someone with infectious disease in past 14 days?: No Do you have a fever (greater than 100.4 F or 38 C)?: No Have you tested positive for COVID-19?: No Exposed to someone with COVID-19 in past 14 days?: No Do you have a sore throat?: No Do you have a cough?: No Do you have any weakness?: No Do you have any diarrhea?: No Are you experiencing any unusual bleeding?: No Do you have any muscle aches/pain?: No Do you have any abdominal pain?: No Are you experiencing loss of taste or smell?: No Other Medical History Have you received the Flu Vaccine for this season: Yes Have you received the Pneumonia Vaccine: No ROS Obtained: Yes All systems reviewed & no additional complaints except as documented and Yes Systems reviewed as appropriate & no additional complaints except as documented Physical Exam General General appearance: alert and in no apparent distress Head Head exam: atraumatic, normocephalic and normal inspection Eye Eye exam: Present normal appearance, PERRL and EOMI; Absent scleral icterus ENT ENT exam: Present normal exam and normal external ear exam Neck Neck exam: Present normal inspection and full ROM Chest Chest inspection: Present normal inspection and symmetric chest wall rise Respiratory Respiratory exam: Present normal lung sounds bilaterally; Absent respiratory distress or wheezes Cardiovascular Cardiovascular exam: Present regular rate, normal rhythm and normal heart sounds Abdominal Exam Abdominal exam: Present soft and distention; Absent tenderness, guarding or rebound Extremities Exam Extremities exam: Present normal inspection and full ROM Back Exam Back exam: Present normal inspection and full ROM Neurological Exam Neurological exam: Present alert and oriented X3 Psychiatric Psychiatric exam: Present normal affect and normal mood Skin Skin exam: Present warm and dry Medical Decision Making Medical Records Medical records reviewed: Yes I reviewed the patient's medical records. Screening: Per USPSTF and CDC recommendations, given the prevalence of disease in our region, it is our hospital?s policy to screen for HIV and viral Hepatitis for all patients aged 18 and over and those with ongoing risk factors. Mehran Inquiry Pt receiving controlled substance: No Vital Signs: 04/28/25 18:09 04/28/25 19:35 04/28/25 20:28 Temperature 98.4 F 97.9 F Temperature Source Oral Oral Pulse Rate 62 61 Pulse Rate [Right Radial] 69 Respiratory Rate 14 20 13 Blood Pressure 119/74 Blood Pressure [Right Arm] 125/68 Blood Pressure Mean Blood Pressure Mean [Right Arm] 87 Blood Pressure Source Automatic Cuff Blood Pressure Source [Right Arm] Automatic Cuff Blood Pressure Position Supine Blood Pressure Position [Right Arm] Supine 02 Sat by Pulse Oximetry 98 97 98 Oxygen Delivery Method Room Air Room Air Room Air 04/28/25 20:30 04/28/25 20:30 04/28/25 20:45 Temperature Temperature Source Pulse Rate 70 59 L Pulse Rate [Right Radial] Respiratory Rate 18 18 Blood Pressure 110/66 Blood Pressure [Right Arm] Blood Pressure Mean 76 Blood Pressure Mean [Right Arm] Blood Pressure Source Blood Pressure Source [Right Arm] Blood Pressure Position Blood Pressure Position [Right Arm] 02 Sat by Pulse Oximetry 98 97 Oxygen Delivery Method Room Air Room Air 04/28/25 21:00 04/28/25 21:00 04/28/25 21:15 Temperature Temperature Source Pulse Rate 57 L 56 L Pulse Rate [Right Radial] Respiratory Rate 15 15 Blood Pressure 112/67 Blood Pressure [Right Arm] Blood Pressure Mean 73 Blood Pressure Mean [Right Arm] Blood Pressure Source Blood Pressure Source [Right Arm] Blood Pressure Position Blood Pressure Position [Right Arm] 02 Sat by Pulse Oximetry 97 96 Oxygen Delivery Method Room Air Room Air 04/28/25 21:30 04/28/25 21:30 04/28/25 21:45 Temperature Temperature Source Pulse Rate 59 L 57 L Pulse Rate [Right Radial] Respiratory Rate 19 17 Blood Pressure 113/56 L Blood Pressure [Right Arm] Blood Pressure Mean 72 Blood Pressure Mean [Right Arm] Blood Pressure Source Blood Pressure Source [Right Arm] Blood Pressure Position Blood Pressure Position [Right Arm] 02 Sat by Pulse Oximetry 97 98 Oxygen Delivery Method Room Air Room Air 04/28/25 21:59 04/28/25 22:00 04/28/25 22:05 Temperature 98.4 F Temperature Source Oral Pulse Rate 55 L 55 L Pulse Rate [Right Radial] Respiratory Rate 16 16 Blood Pressure 111/69 113/56 L Blood Pressure [Right Arm] Blood Pressure Mean 78 Blood Pressure Mean [Right Arm] Blood Pressure Source Automatic Cuff Blood Pressure Source [Right Arm] Blood Pressure Position Sitting Blood Pressure Position [Right Arm] 02 Sat by Pulse Oximetry 97 Oxygen Delivery Method Room Air Room Air Lab Data Lab results reviewed: Yes I reviewed the patient's lab results. Lab Results 04/28/25 18:02: WBC 10.0, RBC 5.06, Hgb 15.0, Hct 43.9, MCV 86.8, MCH 29.6, MCHC 34.2, RDW 12.7, Plt Count 340, MPV 10.2, Neut % (Auto) 60.0, Lymph % (Auto) 29.4, Grady % (Auto) 6.6, Eos % (Auto) 2.9, Baso % (Auto) 0.9, Neut # (Auto) 6.0, Lymph # (Auto) 3.0, Grady # (Auto) 0.7, Eos # (Auto) 0.3, Baso # (Auto) 0.1, Sodium 142, Potassium 3.7, Chloride 106, Carbon Dioxide 25, Anion Gap 14.7, BUN 16 D, Creatinine 1.00, Estimated Creat Clear 127, Estimated GFR 90, Est GFR ( Amer) 108, Glucose 109 H, Calcium 9.9, Total Bilirubin 0.5, AST 23, ALT 29, Alkaline Phosphatase 57, Troponin I < 0.01, Total Protein 8.0, Albumin 5.1 H, Globulin 2.9, Albumin/Globulin Ratio 1.8, Lipase 55, HCV Ab SASHA w/Rflx PCR Qn Negative, HIV Ag/Ab Combo Qual Negative 04/28/25 20:54: Troponin I < 0.01 04/28/25 18:02 04/28/25 18:02 Orders (Tests/Meds): ORDERS Category Date Time Status CXR 2 view (NOT portable) [XR chest 2V] Stat Exams 04/28/25 18:49 Completed Complete Blood Count Auto Diff Stat Lab 04/28/25 18:02 Completed Comprehensive Metabolic Panel Stat Lab 04/28/25 18:02 Completed HIV Combo Stat Lab 04/28/25 18:02 Completed Hepatitis C Ab Qual. W/ RFX Stat Lab 04/28/25 18:02 Completed Lipase Stat Lab 04/28/25 18:02 Completed Troponin I Q3H Lab 04/28/25 20:54 Completed Troponin I Stat Lab 04/28/25 18:02 Completed Medical Decision Narrative: Patient is an otherwise healthy 25-year-old male who presented to the emergency department with chest pain that started around 5 PM. Patient states that it was left-sided dull in nature but has now since resolved. On arrival, patient was hemodynamically stable with unremarkable vital signs. Differential includes but not limited to: Pneumothorax, pleural effusion, pneumonia, ACS/AK, costochondritis, amongst others. Patient's x-ray was reviewed and interpreted by myself: There is no obvious pneumothorax, pleural effusion or pneumonia. Patient's labs were reviewed and interpreted by myself: CBC showed no leukocytosis, hemoglobin was stable. CMP was unremarkable. Initial troponin was less than 0.01, second troponin was less than 0.01. Lipase was normal. Given that patient's pain had resolved in the emergency department and patient had 2 troponins that were otherwise unremarkable. Given patient's otherwise unremarkable workup I felt the patient was stable and appropriate for discharge with outpatient follow-up. Patient's EKG was reviewed and interpreted by myself and showed normal sinus rhythm without acute ST or T wave changes concerning for ischemia. Critical Care Critical Care Time Critical Care Time: No
[2025-04-28 21:05] LABS: Hepatitis C Ab Qual. W/ RFX NEGATIVE (Negative)
[2025-04-28 21:39] LABS: Troponin I < 0.01 ng/ml (0.00-0.034)
== END 2025-04-28 22:06 | disposition home or self-care (01) ==
PROVIDERS: Emergency Provider Student in an Organized Health Care Education/Training Program; PCP Nurse Practitioner Family
DX: R07.9 Chest pain, unspecified (principal); F17.210 Nicotine dependence, cigarettes, uncomplicated
CPT/HCPCS: 71046; 80053; 83690; 84484; 85025; 86803; 87389; 93005; 99284; 99285